=== PATIENT | female | born 1970 | race Caucasian/White ===

== ENCOUNTER 2016-08-13 10:15 | Outpatient (RCR) | payer MEDICARE, MEDICAID ==
[~2016-08-13 10:15] MED LIST: AMBIEN 10MG10 MG; AMBIEN 10MG10 MG PO; CELEXA 20MG20 MG/TAB PO; CELEXA40 MG PO; CEPHALEXIN500 M1 PO; CIPRO 250MG TA250 MG PO; CO Q-1010 M1 PO; DETROL LA 2 MG2 MG PO; DETROL1 MG; ELAVIL100 MG PO; ENABLEX15 MG PO; FENTANYL 100MCG TD; FENTANYL 12MCG; FENTANYL 75MCG TD; FLEXERIL 1010 MG/TAB PO; HAIR SKIN AND NAILS; HAIRSKINNAILS PO; LASIX 20MG TABL20 MG PO; MACROBID 1100 MG/CAP PO; MIRALAX PA17 GM/Dose PO; NORCO 325 MG-7.1 TAB PO; PERCOCET 325 MG1 TA2 PO; PERCOCET 325 MG1 TAB PO; SINGULAIR 110 MG/TAB PO; SYNTHROID0.05 MG/TA PO; THE MEDICINE S200 M2 PO; ULTRAM 50MG TAB50 MG PO; XANAX 1MG1 MG PO; XANAX XR1 M1 PO; XANAX XR2 M1 PO
[2016-08-14] MEDS ORDERED: ZOFRAN ODT4 MG PO (17:27)
[2016-10-04] MEDS ORDERED: DOXYCYCLINE 10100 MG PO (20:40)
== END 2016-08-17 | disposition still patient (30) ==
LOC: WSPT
DX: G11.1 Early-onset cerebellar ataxia (principal)
CPT/HCPCS: G8984-GP; G8985-GP

== ENCOUNTER 2016-08-14 14:27 | Emergency (ER) | payer MEDICARE, MEDICAID ==
[~2016-08-14] VITALS: Ht 152.4 cm; Wt 40.9 kg
[2016-08-14 14:29] VITALS: TEMP 97.8
[2016-08-14 15:46] LABS: BASO % 0.5 % (0.0-2.0); EOS # 0.3 (0.0-0.7); EOS % 3.9 % (0-4.0); GRAN % 58.8 % (42.2-75.2); HEMATOCRIT 42.7 % (37.0-47.0); HEMOGLOBIN 14.4 g/dl (12.5-16.0); LYMPH # 2.7 (1.2-3.4); LYMPH % 32.3 % (20.0-51.0); MEAN CELL VOLUME 96 fl (80.0-100.0); MEAN CORPUSCULAR HEMOGLOBIN 33 pg (27.0-31.0); MEAN CORPUSCULAR HGB CONC 34 g/dl (33.0-37.0); MONO # 0.4 (0.1-0.6); MONO % 4.3 % (1.7-9.3); PLATELET COUNT 232 K/mm3 (130-400); RED BLOOD COUNT 4.43 M/mm3 (4.10-5.30); REDCELL DISTRIBUTION WIDTH-CV 12.7 % (11.5-14.5); WHITE BLOOD COUNT 8.4 K/mm3 (4.8-10.8)
[2016-08-14 16:06] LABS: ADJUSTED CALCIUM 9.8 mg/dL (8.4-10.2); ALBUMIN 4.1 gm/dL (3.5-5.0); BILIRUBIN,TOTAL 0.7 mg/dL (0.0-1.0); CALCIUM 9.9 mg/dL (8.4-10.2); CREATININE, serum 0.51 mg/dL (0.52-1.25); POTASSIUM 3.7 mmol/L (3.4-5.0); TOTAL PROTEIN 7.2 gm/dL (6.4-8.2)
[2016-08-14 17:13] LABS: PH 5 (5-8); URINE APPEARANCE Hazy; URINE BACTERIA Rare /hpf; URINE BILIRUBIN Negative (NEGATIVE); URINE BLOOD Negative (NEGATIVE); URINE COLOR Yellow; URINE GLUCOSE Negative (NEGATIVE); URINE KETONE Negative (NEGATIVE); URINE RBC 0-2 /hpf; URINE UROBILINOGEN Negative (NEGATIVE)
[2016-08-14] MEDS ORDERED: ZOFRAN ODT4 MG PO (17:27)
[2016-08-14 18:04] VITALS: BP 104/77; PULSE 65
[2016-10-04] MEDS ORDERED: DOXYCYCLINE 10100 MG PO (20:40)
== END 2016-08-14 18:06 | disposition home or self-care (01) ==
LOC: COL.ER 14:27
PROVIDERS: Family Medicine
DX: G11.1 Early-onset cerebellar ataxia (principal); R53.1 Weakness
CPT/HCPCS: J1170; J2405; J7030

== ENCOUNTER → 2016-10-04 | Emergency (ER) | payer MEDICARE, MEDICAID ==
[~2016-10-04] VITALS: Ht 152.4 cm; Wt 45.5 kg
[~2016-10-04] MED LIST changes: +DEPAKOTE ER 50500 MG PO; +DOXYCYCLINE 10100 MG PO; +DULCOLAX STOOL100 MG PO; +FLOMAX 0.40.4 MG/CAP PO; +OMNICEF 300MG300 MG PO; +ZITHROMAX 250M250 MG PO; +ZOFRAN 4MG T4 MG/TAB PO; +ZOFRAN ODT4 MG PO
[2016-10-04 17:36] VITALS: BP 107/70; TEMP 98.4
[2016-10-04 21:05] VITALS: PULSE 96
== END ==
LOC: COL.ER 17:31
DX: N76.4 Abscess of vulva (principal); G11.1 Early-onset cerebellar ataxia; Z99.3 Dependence on wheelchair

== ENCOUNTER 2016-10-07 16:55 | Observation (INO) | payer MEDICARE, MEDICAID ==
[~2016-10-07] VITALS: Ht 152.4 cm; Wt 44.9 kg
[~2016-10-07 16:55] MED LIST changes: -DEPAKOTE ER 50500 MG PO; -DULCOLAX STOOL100 MG PO; -FLOMAX 0.40.4 MG/CAP PO; -OMNICEF 300MG300 MG PO; -ZITHROMAX 250M250 MG PO; -ZOFRAN 4MG T4 MG/TAB PO
[2016-10-07 20:54] LABS: BASO % 0.4 % (0.0-2.0); EOS # 0.3 (0.0-0.7); EOS % 3.9 % (0-4.0); GRAN # 4.2 (1.4-6.5); GRAN % 53.8 % (42.2-75.2); HEMATOCRIT 37.6 % (37.0-47.0); HEMOGLOBIN 12.5 g/dl (12.5-16.0); LYMPH # 2.8 (1.2-3.4); LYMPH % 36.5 % (20.0-51.0); MEAN CELL VOLUME 98 fl (80.0-100.0); MEAN CORPUSCULAR HEMOGLOBIN 33 pg (27.0-31.0); MEAN CORPUSCULAR HGB CONC 33 g/dl (33.0-37.0); MEAN PLATELET VOLUME 9.1 fl (7.4-10.4); MONO # 0.4 (0.1-0.6); PLATELET COUNT 269 K/mm3 (130-400); RED BLOOD COUNT 3.84 M/mm3 (4.10-5.30); REDCELL DISTRIBUTION WIDTH-CV 12.1 % (11.5-14.5); WHITE BLOOD COUNT 7.7 K/mm3 (4.8-10.8)
[2016-10-07 21:02] LABS: ALBUMIN 3.7 gm/dL (3.5-5.0); BILIRUBIN,TOTAL 0.7 mg/dL (0.0-1.0); CALCIUM 8.8 mg/dL (8.4-10.2); CREATININE, serum 0.4 mg/dL (0.52-1.25); MAGNESIUM 1.7 mg/dL (1.6-2.3); PHOSPHOROUS 3.1 mg/dL (2.5-4.5); POTASSIUM 3.4 mmol/L (3.4-5.0); TOTAL PROTEIN 6.3 gm/dL (6.4-8.2)
[2016-10-07 21:19] LABS: PROLACTIN 9.8 ng/mL (3.0-18.6)
[2016-10-07 23:30] LABS: PH 5 (5-8); SQUAMOUS EPITHELIAL 20-50 /hpf; URINE APPEARANCE Cloudy; URINE BACTERIA Rare /hpf; URINE BILIRUBIN Negative (NEGATIVE); URINE BLOOD Negative (NEGATIVE); URINE COLOR Amber; URINE GLUCOSE Negative (NEGATIVE); URINE KETONE 1+ (NEGATIVE); URINE UROBILINOGEN Negative (NEGATIVE)
[2016-10-07 23:40] VITALS: BP 113/75; PULSE 82; TEMP 98.3
[2016-10-08 03:50] VITALS: BP 99/65; PULSE 90; TEMP 98.2
[2016-10-08 08:34] VITALS: BP 97/69; PULSE 98; TEMP 98.1
[2016-10-08] MEDS ORDERED: NORCO 325 MG-7.1 TAB PO (10:24)
[2016-10-08 11:48] VITALS: BP 116/79; PULSE 97; TEMP 98.4
[2016-10-08 13:01] LABS: HIV 1/2 Antibodies Non-Reactive; HIV-1p24 Antigen Non-Reactive
[2016-10-08 14:55] VITALS: BP 127/72; PULSE 113; TEMP 97.9
[2016-10-08 19:59] VITALS: BP 122/75; PULSE 98; TEMP 97.6
[2016-10-09 00:11] VITALS: BP 98/54; PULSE 97; TEMP 98.4
[2016-10-09 04:30] VITALS: BP 97/63; PULSE 93; TEMP 98
[2016-10-09 08:52] VITALS: BP 106/58; PULSE 96; TEMP 97.5
[2016-10-10 18:00] LABS: .ANTICARDIOLIPIN IGG <9.4 GPL (()); .ANTICARDIOLIPIN IGM <9.4 MPL (())
== END 2016-10-09 16:31 | disposition home or self-care (01) ==
LOC: COL.ER 16:55 → MEDICAL 22:47
PROVIDERS: Emergency Medicine; Psychiatry & Neurology Neurology
DX: R51 Headache (principal); R41.82 Altered mental status, unspecified; N76.4 Abscess of vulva; G11.1 Early-onset cerebellar ataxia; I42.9 Cardiomyopathy, unspecified; F17.210 Nicotine dependence, cigarettes, uncomplicated
CPT/HCPCS: 99239; G0378; J1170; J1200; J1885; J2060; J2550; J7030

== ENCOUNTER 2016-11-05 10:00 | Outpatient (RCR) | payer MEDICARE, MEDICAID | END 2016-11-10 11:13 | disposition home or self-care (01) | LOC: WSPT 10:00 → WSC 10:00 | DX: G11.1 Early-onset cerebellar ataxia (principal) ==

== ENCOUNTER 2016-11-29 15:51 | Emergency (ER) | payer MEDICARE, MEDICAID ==
[2016-11-29 15:56] VITALS: TEMP 98.5
[2016-11-29 17:01] LABS: BASO % 0.3 % (0.0-2.0); EOS # 0.1 (0.0-0.7); EOS % 0.8 % (0-4.0); GRAN # 11.1 (1.4-6.5); GRAN % 75.7 % (42.2-75.2); HEMOGLOBIN 12.5 g/dl (12.5-16.0); LYMPH # 2.3 (1.2-3.4); LYMPH % 15.9 % (20.0-51.0); MEAN CELL VOLUME 97 fl (80.0-100.0); MEAN CORPUSCULAR HEMOGLOBIN 33 pg (27.0-31.0); MEAN CORPUSCULAR HGB CONC 34 g/dl (33.0-37.0); MEAN PLATELET VOLUME 9.3 fl (7.4-10.4); MONO % 6.9 % (1.7-9.3); PLATELET COUNT 178 K/mm3 (130-400); REDCELL DISTRIBUTION WIDTH-CV 12.1 % (11.5-14.5); WHITE BLOOD COUNT 14.7 K/mm3 (4.8-10.8)
[2016-11-29 17:02] LABS: HEMATOCRIT 36.8 % (37.0-47.0)
[2016-11-29 17:12] LABS: ADJUSTED CALCIUM 9.6 mg/dL (8.4-10.2); ALBUMIN 3.6 gm/dL (3.5-5.0); BILIRUBIN,TOTAL 0.7 mg/dL (0.0-1.0); CALCIUM 9.3 mg/dL (8.4-10.2); CREATININE, serum 0.46 mg/dL (0.52-1.25); POTASSIUM 3.3 mmol/L (3.4-5.0); TOTAL PROTEIN 6.3 gm/dL (6.4-8.2)
[2016-11-29 18:21] LABS: C-REACTIVE PROTEIN 6.2 mg/dL (0.0-0.9)
[2016-11-29 19:19] LABS: PH 5 (5-8); SQUAMOUS EPITHELIAL 0-2 /hpf; URINE APPEARANCE Clear; URINE BACTERIA None Seen /hpf; URINE BILIRUBIN Negative (NEGATIVE); URINE BLOOD 2+ (NEGATIVE); URINE COLOR Yellow; URINE GLUCOSE Negative (NEGATIVE); URINE KETONE Trace (NEGATIVE); URINE RBC 20-50 /hpf; URINE WBC 0-2 /hpf
[2016-11-29 21:55] LABS: CEREBROSPINAL TUBE #4; CSF APPEARANCE CLEAR; CSF COLOR COLORLESS
[2016-11-29 22:44] VITALS: BP 92/64; PULSE 84
== END 2016-11-29 22:55 | disposition home or self-care (01) ==
LOC: COL.ER 15:51
PROVIDERS: Emergency Medicine; Family Medicine
DX: R51 Headache (principal); R41.0 Disorientation, unspecified; G11.1 Early-onset cerebellar ataxia; D72.829 Elevated white blood cell count, unspecified
CPT/HCPCS: J1170; J7030

== ENCOUNTER 2016-11-30 18:33 | Observation (INO) | payer MEDICARE, MEDICAID ==
[~2016-11-30] VITALS: Ht 160 cm; Wt 48.8 kg
[2016-11-30 19:26] LABS: BASO % 0.4 % (0.0-2.0); EOS # 0.5 (0.0-0.7); EOS % 6.9 % (0-4.0); GRAN # 4.4 (1.4-6.5); GRAN % 57.1 % (42.2-75.2); HEMATOCRIT 35.3 % (37.0-47.0); HEMOGLOBIN 11.7 g/dl (12.5-16.0); LYMPH # 2.4 (1.2-3.4); LYMPH % 30.8 % (20.0-51.0); MEAN CELL VOLUME 99 fl (80.0-100.0); MEAN CORPUSCULAR HEMOGLOBIN 33 pg (27.0-31.0); MEAN CORPUSCULAR HGB CONC 33 g/dl (33.0-37.0); MEAN PLATELET VOLUME 9.5 fl (7.4-10.4); MONO # 0.3 (0.1-0.6); MONO % 4.5 % (1.7-9.3); PLATELET COUNT 151 K/mm3 (130-400); RED BLOOD COUNT 3.55 M/mm3 (4.10-5.30); REDCELL DISTRIBUTION WIDTH-CV 12.2 % (11.5-14.5); WHITE BLOOD COUNT 7.6 K/mm3 (4.8-10.8)
[2016-11-30 19:31] LABS: INR 1.1 (0.8-3.0); PROTHROMBIN TIME 11.8 SECONDS (9.7-12.8)
[2016-11-30 19:34] LABS: PARTIAL THROMBOPLASTIN TIME 28.5 SECONDS (26.0-37.0)
[2016-11-30 19:42] LABS: ADJUSTED CALCIUM 9.3 mg/dL (8.4-10.2); ALBUMIN 3.6 gm/dL (3.5-5.0); BILIRUBIN,TOTAL 0.7 mg/dL (0.0-1.0); C-REACTIVE PROTEIN 5.3 mg/dL (0.0-0.9); CREATININE, serum 0.49 mg/dL (0.52-1.25); POTASSIUM 3.4 mmol/L (3.4-5.0); TOTAL PROTEIN 6.4 gm/dL (6.4-8.2)
[2016-12-01 02:49] VITALS: BP 98/64; PULSE 96; TEMP 98.6
[2016-12-01 02:52] VITALS: BP 99/60; PULSE 94; TEMP 98.3
[2016-12-01 08:03] VITALS: BP 112/75; PULSE 88
[2016-12-01 11:01] VITALS: BP 111/76; PULSE 97; TEMP 98
[2016-12-01] MEDS ORDERED: XANAX XR2 M1 PO (11:24)
[2016-12-01] MEDS ORDERED: DEPAKOTE ER 50500 MG PO (11:26)
[2016-12-01 15:58] VITALS: BP 97/70; PULSE 83; TEMP 98.5
== END 2016-12-01 17:40 | disposition home or self-care (01) ==
LOC: COL.ER 18:33 → MEDICAL 20:32
PROVIDERS: Emergency Medicine
DX: R41.82 Altered mental status, unspecified (principal); R47.81 Slurred speech; G43.909 Migraine, unspecified, not intractable, without status migrainosus; J02.9 Acute pharyngitis, unspecified; I95.9 Hypotension, unspecified; Z79.02 Long term (current) use of antithrombotics/antiplatelets; G11.1 Early-onset cerebellar ataxia; G82.50 Quadriplegia, unspecified; Z99.3 Dependence on wheelchair; I42.9 Cardiomyopathy, unspecified; Z86.73 Personal history of transient ischemic attack (TIA), and cerebral infarction without residual deficits; F17.210 Nicotine dependence, cigarettes, uncomplicated
CPT/HCPCS: 99222-AI; 99239; G0378; J1885; J7030

== ENCOUNTER 2016-12-04 09:07 | Inpatient (IN) | payer MEDICARE, MEDICAID ==
[~2016-12-04] VITALS: Ht 165.1 cm; Wt 52.6 kg
[~2016-12-04 09:07] MED LIST changes: +DEPAKOTE ER 50500 MG PO
[2016-12-04 10:31] LABS: BASO % 0.3 % (0.0-2.0); EOS # 0.3 (0.0-0.7); EOS % 2.9 % (0-4.0); GRAN % 73.9 % (42.2-75.2); LYMPH # 1.6 (1.2-3.4); LYMPH % 14.5 % (20.0-51.0); MEAN CELL VOLUME 99 fl (80.0-100.0); MEAN CORPUSCULAR HGB CONC 33 g/dl (33.0-37.0); MEAN PLATELET VOLUME 9.8 fl (7.4-10.4); MONO # 0.8 (0.1-0.6); MONO % 7.8 % (1.7-9.3); PLATELET COUNT 181 K/mm3 (130-400); RED BLOOD COUNT 3.48 M/mm3 (4.10-5.30); REDCELL DISTRIBUTION WIDTH-CV 12.4 % (11.5-14.5); WHITE BLOOD COUNT 10.8 K/mm3 (4.8-10.8)
[2016-12-04 10:38] LABS: ALBUMIN 3.5 gm/dL (3.5-5.0); BILIRUBIN,TOTAL 0.7 mg/dL (0.0-1.0); CALCIUM 8.6 mg/dL (8.4-10.2); CREATININE, serum 0.41 mg/dL (0.52-1.25); POTASSIUM 3.1 mmol/L (3.4-5.0); TOTAL PROTEIN 6.2 gm/dL (6.4-8.2)
[2016-12-04 10:51] LABS: HEMATOCRIT 34.3 % (37.0-47.0); HEMOGLOBIN 11.4 g/dl (12.5-16.0); MEAN CORPUSCULAR HEMOGLOBIN 33 pg (27.0-31.0)
[2016-12-04 11:01] LABS: TROPONIN-I 0.055 ng/mL (0.000-0.034)
[2016-12-04 12:19] VITALS: BP 116/72; PULSE 88; TEMP 98.1
[2016-12-04 12:21] VITALS: BP 116/72; PULSE 88; TEMP 98.1
[2016-12-04 18:11] VITALS: BP 89/63; PULSE 87; TEMP 97.3
[2016-12-04 20:23] LABS: MAGNESIUM 1.8 mg/dL (1.6-2.3)
[2016-12-04 21:32] VITALS: BP 95/65; PULSE 88; TEMP 97.8
[2016-12-05 01:39] VITALS: BP 89/59; PULSE 82; TEMP 97.4
[2016-12-05 05:31] VITALS: BP 94/64; PULSE 82; TEMP 97.5
[2016-12-05 07:05] LABS: BASO % 0.4 % (0.0-2.0); EOS # 0.4 (0.0-0.7); EOS % 5.7 % (0-4.0); GRAN # 4.1 (1.4-6.5); GRAN % 55.7 % (42.2-75.2); LYMPH # 2.3 (1.2-3.4); LYMPH % 30.8 % (20.0-51.0); MEAN CELL VOLUME 99 fl (80.0-100.0); MEAN CORPUSCULAR HGB CONC 33 g/dl (33.0-37.0); MEAN PLATELET VOLUME 10.3 fl (7.4-10.4); MONO # 0.5 (0.1-0.6); MONO % 6.3 % (1.7-9.3); PLATELET COUNT 188 K/mm3 (130-400); REDCELL DISTRIBUTION WIDTH-CV 12.4 % (11.5-14.5); WHITE BLOOD COUNT 7.4 K/mm3 (4.8-10.8)
[2016-12-05 07:07] LABS: HEMATOCRIT 31.7 % (37.0-47.0); HEMOGLOBIN 10.3 g/dl (12.5-16.0); MEAN CORPUSCULAR HEMOGLOBIN 32 pg (27.0-31.0)
[2016-12-05 07:26] LABS: CALCIUM 8.8 mg/dL (8.4-10.2); CREATININE, serum 0.42 mg/dL (0.52-1.25)
[2016-12-05 10:13] VITALS: BP 109/56; PULSE 100; TEMP 98
[2016-12-05 13:57] VITALS: BP 94/60; PULSE 87; TEMP 98
[2016-12-05 17:27] VITALS: BP 96/71; PULSE 96; TEMP 98.4
[2016-12-05 21:23] VITALS: BP 106/77; PULSE 89; TEMP 98.5
[2016-12-06 05:24] VITALS: BP 96/65; PULSE 83; TEMP 98.1
[2016-12-06] MEDS ORDERED: OMNICEF 300MG300 MG PO (07:54)
[2016-12-06] MEDS ORDERED: ZITHROMAX 250M250 MG PO (07:55)
[2016-12-06] MEDS ORDERED: XANAX XR2 M1 PO (07:56)
[2016-12-06 10:02] VITALS: BP 107/79; PULSE 95; TEMP 98.2
[2016-12-06 12:03] LABS: PH 7 (5-8); URINE APPEARANCE Clear; URINE BACTERIA None Seen /hpf; URINE BILIRUBIN Negative (NEGATIVE); URINE BLOOD Negative (NEGATIVE); URINE COLOR Yellow; URINE GLUCOSE Negative (NEGATIVE); URINE KETONE Negative (NEGATIVE); URINE WBC 0-2 /hpf
== END 2016-12-06 14:20 | disposition home or self-care (01) | DRG 871 ==
LOC: COL.ER 09:07 → SURG 11:06
PROVIDERS: Emergency Medicine; Internal Medicine; Physician Assistant
DX: A41.9 Sepsis, unspecified organism (principal); J18.9 Pneumonia, unspecified organism; G11.1 Early-onset cerebellar ataxia; Z68.1 Body mass index [BMI] 19.9 or less, adult; Z99.3 Dependence on wheelchair; Z86.73 Personal history of transient ischemic attack (TIA), and cerebral infarction without residual deficits; F17.210 Nicotine dependence, cigarettes, uncomplicated; J02.9 Acute pharyngitis, unspecified; E87.6 Hypokalemia; R51 Headache; D64.9 Anemia, unspecified; K59.00 Constipation, unspecified; R63.6 Underweight
CPT/HCPCS: 99222-AI; 99223-AI; 99232-AI; 99239; G0378; J0456; J0696; J1650; J1885; J2270; J7030; J7050

== ENCOUNTER 2017-03-16 20:31 | Emergency (ER) | payer MEDICARE, MEDICAID ==
[~2017-03-16] VITALS: Ht 152.4 cm; Wt 46.8 kg
[~2017-03-16 20:31] MED LIST changes: +OMNICEF 300MG300 MG PO; +ZITHROMAX 250M250 MG PO
[2017-03-16 20:33] VITALS: TEMP 98.8
[2017-03-16] MEDS ORDERED: XANAX XR2 M1 PO (21:01)
[2017-03-16] MEDS ORDERED: ELAVIL100 MG PO (21:01)
[2017-03-16] MEDS ORDERED: CELEXA40 MG PO (21:02)
[2017-03-16] MEDS ORDERED: SINGULAIR 110 MG/TAB PO (21:02)
[2017-03-16] MEDS ORDERED: ENABLEX15 MG PO (21:02)
[2017-03-16] MEDS ORDERED: LASIX 20MG TABL20 MG PO (21:03)
[2017-03-16] MEDS ORDERED: FLEXERIL 1010 MG/TAB PO (21:03)
[2017-03-16 21:41] LABS: BASO % 0.4 % (0.0-2.0); EOS # 0.4 (0.0-0.7); EOS % 5.1 % (0-4.0); GRAN # 2.8 (1.4-6.5); GRAN % 40.4 % (42.2-75.2); HEMATOCRIT 38.2 % (37.0-47.0); HEMOGLOBIN 12.9 g/dl (12.5-16.0); LYMPH # 3.3 (1.2-3.4); LYMPH % 48.5 % (20.0-51.0); MEAN CELL VOLUME 97 fl (80.0-100.0); MEAN CORPUSCULAR HEMOGLOBIN 33 pg (27.0-31.0); MEAN CORPUSCULAR HGB CONC 34 g/dl (33.0-37.0); MEAN PLATELET VOLUME 8.5 fl (7.4-10.4); MONO # 0.4 (0.1-0.6); MONO % 5.5 % (1.7-9.3); PLATELET COUNT 249 K/mm3 (130-400); RED BLOOD COUNT 3.93 M/mm3 (4.10-5.30); REDCELL DISTRIBUTION WIDTH-CV 12.1 % (11.5-14.5); WHITE BLOOD COUNT 6.9 K/mm3 (4.8-10.8)
[2017-03-16 21:45] LABS: PH 5 (5-8); SQUAMOUS EPITHELIAL 0-2 /hpf; URINE APPEARANCE Cloudy; URINE BACTERIA None Seen /hpf; URINE BILIRUBIN Negative (NEGATIVE); URINE BLOOD 3+ (NEGATIVE); URINE COLOR Amber; URINE GLUCOSE Negative (NEGATIVE); URINE KETONE Negative (NEGATIVE); URINE RBC >50 /hpf
[2017-03-16 21:47] LABS: URINE WBC 0-2 /hpf
[2017-03-16 21:58] LABS: ADJUSTED CALCIUM 9.3 mg/dL (8.4-10.2); ALBUMIN 4.2 gm/dL (3.5-5.0); BILIRUBIN,TOTAL 0.5 mg/dL (0.0-1.0); CALCIUM 9.5 mg/dL (8.4-10.2); CREATININE, serum 0.49 mg/dL (0.52-1.25); POTASSIUM 3.6 mmol/L (3.4-5.0)
[2017-03-16] MEDS ORDERED: CEPHALEXIN500 M1 PO (23:44)
[2017-03-16] MEDS ORDERED: PERCOCET 325 MG1 TA2 PO (23:44)
[2017-03-16] MEDS ORDERED: FLOMAX 0.40.4 MG/CAP PO (23:44)
[2017-03-16] MEDS ORDERED: ZOFRAN 4MG T4 MG/TAB PO (23:44)
[2017-03-16] MEDS ORDERED: DULCOLAX STOOL100 MG PO (23:44)
[2017-03-17 00:53] VITALS: BP 110/80; PULSE 84
== END 2017-03-17 00:54 | disposition home or self-care (01) ==
LOC: COL.ER 20:31
PROVIDERS: Emergency Medicine
DX: N20.0 Calculus of kidney (principal); Z87.440 Personal history of urinary (tract) infections
CPT/HCPCS: J1885; J2405; J7030; Q9967

== ENCOUNTER 2017-04-01 14:26 | Observation (INO) | payer MEDICARE, MEDICAID ==
[~2017-04-01 14:26] MED LIST changes: +DULCOLAX STOOL100 MG PO; +FLOMAX 0.40.4 MG/CAP PO; +ZOFRAN 4MG T4 MG/TAB PO
[2017-04-01] MEDS ORDERED: COLACE 100100 MG/CAP PO (15:25)
[2017-04-01] MEDS ORDERED: FENTANYL 100MCG TD (15:32)
[2017-04-01 15:38] VITALS: BP 95/77; PULSE 89; TEMP 98.1
[2017-04-01 16:23] LABS: HEMATOCRIT 42.2 % (37.0-47.0); HEMOGLOBIN 14.4 g/dl (12.5-16.0)
[2017-04-01 16:37] LABS: CALCIUM 9.7 mg/dL (8.4-10.2); CREATININE, serum 0.5 mg/dL (0.52-1.25); MAGNESIUM 1.8 mg/dL (1.6-2.3); POTASSIUM 3.1 mmol/L (3.4-5.0)
[2017-04-01 21:31] VITALS: BP 109/70; PULSE 91; TEMP 97.8
[2017-04-01 23:49] VITALS: BP 114/69; PULSE 82; TEMP 97.8
[2017-04-02 04:54] VITALS: BP 96/62; PULSE 82; TEMP 97.8
[2017-04-02 07:40] LABS: CALCIUM 9.2 mg/dL (8.4-10.2); CREATININE, serum 0.47 mg/dL (0.52-1.25); MAGNESIUM 1.9 mg/dL (1.6-2.3); POTASSIUM 4.4 mmol/L (3.4-5.0)
[2017-04-02 07:59] VITALS: BP 115/72; PULSE 78; TEMP 97.2
[2017-04-02 14:04] VITALS: BP 106/79; PULSE 85
[2017-04-03] MEDS ORDERED: CEFTIN 250250 MG/TAB PO (12:26)
[2017-04-03] MEDS ORDERED: LINZESS290CAP (12:26)
[2017-04-03] MEDS ORDERED: PERCOCET 325 MG1 TA2 PO (12:27)
[2017-04-03] MEDS ORDERED: SILVADEN TOP (12:27)
[2017-04-04] MEDS ORDERED: BACTRIM DS 8001 TAB PO (13:11)
== END 2017-04-02 14:50 | disposition home or self-care (01) ==
LOC: SDCO 14:26 → MEDICAL 14:26 → SDCO 16:01 → MEDICAL 04-02 14:50
PROVIDERS: Internal Medicine; Physician Assistant
DX: K64.1 Second degree hemorrhoids (principal); K59.00 Constipation, unspecified; E87.6 Hypokalemia; G11.1 Early-onset cerebellar ataxia; G43.909 Migraine, unspecified, not intractable, without status migrainosus; I42.9 Cardiomyopathy, unspecified; K62.5 Hemorrhage of anus and rectum; F32.9 Major depressive disorder, single episode, unspecified; F17.210 Nicotine dependence, cigarettes, uncomplicated; J45.909 Unspecified asthma, uncomplicated; E03.9 Hypothyroidism, unspecified; F41.9 Anxiety disorder, unspecified; G89.29 Other chronic pain; Z86.73 Personal history of transient ischemic attack (TIA), and cerebral infarction without residual deficits; Z90.710 Acquired absence of both cervix and uterus; Z90.49 Acquired absence of other specified parts of digestive tract
CPT/HCPCS: G0378; G0379; J2704; J3480; J7120

== ENCOUNTER 2017-06-09 09:43 | Emergency (ER) | payer MEDICARE, MEDICAID ==
[~2017-06-09] VITALS: Ht 152.4 cm; Wt 52.3 kg
[~2017-06-09 09:43] MED LIST changes: -ROXICODONE 55 MG/TAB PO
[2017-06-09 09:46] VITALS: TEMP 98.4
[2017-06-09 10:35] LABS: BASO % 0.5 % (0.0-2.0); EOS # 0.4 (0.0-0.7); EOS % 5.8 % (0-4.0); GRAN # 3.3 (1.4-6.5); GRAN % 53.7 % (42.2-75.2); HEMATOCRIT 42.5 % (37.0-47.0); HEMOGLOBIN 14.1 g/dl (12.5-16.0); LYMPH # 2.1 (1.2-3.4); LYMPH % 33.8 % (20.0-51.0); MEAN CELL VOLUME 99 fl (80.0-100.0); MEAN CORPUSCULAR HEMOGLOBIN 33 pg (27.0-31.0); MEAN CORPUSCULAR HGB CONC 33 g/dl (33.0-37.0); MEAN PLATELET VOLUME 8.7 fl (7.4-10.4); MONO # 0.4 (0.1-0.6); PLATELET COUNT 262 K/mm3 (130-400); RED BLOOD COUNT 4.29 M/mm3 (4.10-5.30); WHITE BLOOD COUNT 6.2 K/mm3 (4.8-10.8)
[2017-06-09 10:45] LABS: ADJUSTED CALCIUM 9.7 mg/dL (8.4-10.2); ALBUMIN 4.4 gm/dL (3.5-5.0); BILIRUBIN,TOTAL 0.5 mg/dL (0.0-1.0); CREATININE, serum 0.51 mg/dL (0.52-1.25); POTASSIUM 3.7 mmol/L (3.4-5.0); TOTAL PROTEIN 7.4 gm/dL (6.4-8.2)
[2017-06-09 10:45] LABS: COLLECTION METHOD CATHETER
[2017-06-09 10:57] LABS: AMORPHOUS CRYSTAL Present /uL; BUDDING YEAST Present /hpf; PH 5 (5-8); SQUAMOUS EPITHELIAL 0-2 /hpf; URINE APPEARANCE Cloudy; URINE BACTERIA None Seen /hpf; URINE BILIRUBIN Negative (NEGATIVE); URINE BLOOD 3+ (NEGATIVE); URINE COLOR Amber; URINE GLUCOSE Negative (NEGATIVE); URINE KETONE Negative (NEGATIVE); URINE LEUKOCYTE ESTERASE Negative (NEGATIVE); URINE PROTEIN(semi-quant) 2+ (NEGATIVE); URINE RBC >50 /hpf; URINE WBC 0-2 /hpf
[2017-06-09 11:45] VITALS: BP 124/78; PULSE 67
[2017-06-09] MEDS ORDERED: ROXICODONE 55 MG/TAB PO (15:41)
== END 2017-06-09 11:45 | disposition home or self-care (01) ==
LOC: COL.ER 09:43
PROVIDERS: Nurse Practitioner
DX: R31.9 Hematuria, unspecified (principal); F32.9 Major depressive disorder, single episode, unspecified; F41.9 Anxiety disorder, unspecified; G11.9 Hereditary ataxia, unspecified; F17.210 Nicotine dependence, cigarettes, uncomplicated; Z90.710 Acquired absence of both cervix and uterus; Z90.49 Acquired absence of other specified parts of digestive tract; Z90.89 Acquired absence of other organs; Z98.890 Other specified postprocedural states; Z86.73 Personal history of transient ischemic attack (TIA), and cerebral infarction without residual deficits

== ENCOUNTER 2017-06-09 14:47 | Day surgery (SDC) | payer MEDICARE, MEDICAID ==
[2017-06-09] VITALS (10 sets, daily range): BP systolic 112–126; BP diastolic 65–92; PULSE 65–96; TEMP 98.1–98.3
[~2017-06-09] VITALS: Ht 152.4 cm; Wt 49.9 kg
[2017-06-09] MEDS ORDERED: ROXICODONE 55 MG/TAB PO (15:41)
[2017-06-10 01:06] VITALS: BP 104/65; PULSE 86; TEMP 98
[2017-06-10 05:50] VITALS: BP 92/59; PULSE 85; TEMP 98.2
[2017-06-10 09:01] VITALS: BP 118/75; PULSE 103; TEMP 97.6
== END 2017-06-10 10:26 | disposition home or self-care (01) ==
LOC: SDCO 14:47 → SURG 14:47 → SDCO 06-10 10:26
DX: N20.1 Calculus of ureter (principal); G11.1 Early-onset cerebellar ataxia; Z87.442 Personal history of urinary calculi; Z90.710 Acquired absence of both cervix and uterus; F17.210 Nicotine dependence, cigarettes, uncomplicated; F32.9 Major depressive disorder, single episode, unspecified; F41.9 Anxiety disorder, unspecified; I42.9 Cardiomyopathy, unspecified; E03.9 Hypothyroidism, unspecified; I69.898 Other sequelae of other cerebrovascular disease; I69.828 Other speech and language deficits following other cerebrovascular disease; Z99.3 Dependence on wheelchair; G89.29 Other chronic pain
CPT/HCPCS: OP; C1769; J2270; Q9967

== ENCOUNTER → 2017-06-09 | Outpatient (CLI) | payer MEDICARE, MEDICAID ==
[~2017-06-09] MED LIST changes: +BACTRIM DS 8001 TAB PO; +CEFTIN 250250 MG/TAB PO; +COLACE 100100 MG/CAP PO; +LINZESS290CAP; +ROXICODONE 55 MG/TAB PO; +SILVADEN TOP
== END ==
LOC: COL.RAD 13:10
DX: N13.2 Hydronephrosis with renal and ureteral calculous obstruction (principal); Z90.49 Acquired absence of other specified parts of digestive tract; Z90.710 Acquired absence of both cervix and uterus; K59.00 Constipation, unspecified
CPT/HCPCS: J0690; J1100; J2405; J2704; J3010

== ENCOUNTER 2017-07-01 15:07 | Inpatient (IN) | payer MEDICARE, MEDICAID ==
[~2017-07-01] VITALS: Ht 152.4 cm; Wt 50.4 kg
[~2017-07-01 15:07] MED LIST changes: +ROXICODONE 55 MG/TAB PO
[2017-07-01 16:19] LABS: ALANINE AMINOTRANSFERASE 49 U/L (9-52); ALBUMIN 4.4 gm/dL (3.5-5.0); ALKALINE PHOSPHATASE 114 U/L (50-136); ANION GAP 10 mmol/L (7-16); AST,SGOT 37 U/L (15-37); BILIRUBIN,TOTAL 0.5 mg/dL (0.0-1.0); BLOOD UREA NITROGEN 11 mg/dL (7-17); C-REACTIVE PROTEIN < 0.5 mg/dL (0.0-0.9); CALCIUM 10.1 mg/dL (8.4-10.2); CARBON DIOXIDE 24 mmol/L (22-30); CHLORIDE 101 mmol/L (98-107); CREATININE, serum 0.41 mg/dL (0.52-1.25); GLUCOSE 132 mg/dL (74-106); POTASSIUM 4.1 mmol/L (3.4-5.0); SODIUM 135 mmol/L (137-145); TOTAL PROTEIN 7.2 gm/dL (6.4-8.2)
[2017-07-01 16:30] LABS: COLLECTION METHOD CATHETER
[2017-07-01 16:32] LABS: BASO % 0.3 % (0.0-2.0); EOS # 0.2 (0.0-0.7); EOS % 1.8 % (0-4.0); GRAN # 6.5 (1.4-6.5); HEMATOCRIT 38.3 % (37.0-47.0); HEMOGLOBIN 12.7 g/dl (12.5-16.0); LYMPH # 1.9 (1.2-3.4); LYMPH % 20.3 % (20.0-51.0); MEAN CELL VOLUME 99 fl (80.0-100.0); MEAN CORPUSCULAR HEMOGLOBIN 33 pg (27.0-31.0); MEAN CORPUSCULAR HGB CONC 33 g/dl (33.0-37.0); MEAN PLATELET VOLUME 8.7 fl (7.4-10.4); MONO # 0.7 (0.1-0.6); MONO % 7.3 % (1.7-9.3); PLATELET COUNT 283 K/mm3 (130-400); RED BLOOD COUNT 3.89 M/mm3 (4.10-5.30); REDCELL DISTRIBUTION WIDTH-CV 12.3 % (11.5-14.5)
[2017-07-01 16:38] LABS: AMORPHOUS CRYSTAL Present /uL; MUCOUS Present /lpf; PH 5 (5-8); URINE APPEARANCE Cloudy; URINE BACTERIA None Seen /hpf; URINE BILIRUBIN Negative (NEGATIVE); URINE BLOOD 3+ (NEGATIVE); URINE COLOR Amber; URINE GLUCOSE Negative (NEGATIVE); URINE KETONE Negative (NEGATIVE); URINE LEUKOCYTE ESTERASE Negative (NEGATIVE); URINE NITRATE Negative (NEGATIVE); URINE PROTEIN(semi-quant) 2+ (NEGATIVE); URINE RBC >50 /hpf
[2017-07-01] MEDS ORDERED: MIRALAX PA17 GM/Dose PO (21:26)
[2017-07-01 22:38] VITALS: BP 125/89; PULSE 104; TEMP 98.6
[2017-07-02] VITALS (13 sets, daily range): BP systolic 97–148; BP diastolic 40–85; PULSE 89–106; TEMP 97.3–98.5
[2017-07-02 07:14] LABS: CALCIUM 9.2 mg/dL (8.4-10.2); CREATININE, serum 0.42 mg/dL (0.52-1.25); POTASSIUM 3.5 mmol/L (3.4-5.0)
[2017-07-02 07:20] LABS: BASO % 0.6 % (0.0-2.0); EOS # 0.3 (0.0-0.7); EOS % 4.9 % (0-4.0); GRAN # 2.6 (1.4-6.5); GRAN % 41.4 % (42.2-75.2); HEMOGLOBIN 12.1 g/dl (12.5-16.0); LYMPH # 2.8 (1.2-3.4); LYMPH % 45.5 % (20.0-51.0); MEAN CELL VOLUME 100 fl (80.0-100.0); MEAN CORPUSCULAR HEMOGLOBIN 33 pg (27.0-31.0); MEAN CORPUSCULAR HGB CONC 33 g/dl (33.0-37.0); MEAN PLATELET VOLUME 9.3 fl (7.4-10.4); MONO # 0.5 (0.1-0.6); MONO % 7.4 % (1.7-9.3); PLATELET COUNT 276 K/mm3 (130-400); RED BLOOD COUNT 3.71 M/mm3 (4.10-5.30); REDCELL DISTRIBUTION WIDTH-CV 12.4 % (11.5-14.5)
[2017-07-02 07:30] LABS: HEMATOCRIT 36.9 % (37.0-47.0)
[2017-07-03 02:09] VITALS: BP 125/80; PULSE 78; TEMP 98.4
[2017-07-03 06:02] VITALS: BP 127/81; PULSE 79; TEMP 97.5
[2017-07-03 06:50] LABS: BASO % 0.1 % (0.0-2.0); EOS % 0.2 % (0-4.0); GRAN # 6.3 (1.4-6.5); GRAN % 71.8 % (42.2-75.2); LYMPH # 1.9 (1.2-3.4); LYMPH % 21.2 % (20.0-51.0); MEAN CELL VOLUME 99 fl (80.0-100.0); MEAN CORPUSCULAR HGB CONC 33 g/dl (33.0-37.0); MEAN PLATELET VOLUME 9.2 fl (7.4-10.4); MONO # 0.6 (0.1-0.6); MONO % 6.2 % (1.7-9.3); PLATELET COUNT 236 K/mm3 (130-400); REDCELL DISTRIBUTION WIDTH-CV 12.4 % (11.5-14.5)
[2017-07-03 06:58] LABS: HEMATOCRIT 34.6 % (37.0-47.0); HEMOGLOBIN 11.4 g/dl (12.5-16.0); MEAN CORPUSCULAR HEMOGLOBIN 33 pg (27.0-31.0)
[2017-07-03 07:17] LABS: CREATININE, serum 0.42 mg/dL (0.52-1.25); POTASSIUM 3.8 mmol/L (3.4-5.0)
[2017-07-03 09:48] VITALS: BP 112/80; PULSE 80; TEMP 98
[2017-07-03 13:45] VITALS: BP 83/44; PULSE 112; TEMP 98.7
[2017-07-03 18:16] VITALS: BP 92/51; PULSE 91; TEMP 97
[2017-07-03 21:24] VITALS: BP 98/56; PULSE 103; TEMP 97.3
[2017-07-04 06:01] VITALS: BP 116/72; PULSE 96; TEMP 97.6
[2017-07-04 06:32] LABS: BASO % 0.3 % (0.0-2.0); EOS # 0.1 (0.0-0.7); EOS % 1.6 % (0-4.0); GRAN # 5.2 (1.4-6.5); GRAN % 76.9 % (42.2-75.2); LYMPH % 14.5 % (20.0-51.0); MEAN CELL VOLUME 100 fl (80.0-100.0); MEAN CORPUSCULAR HGB CONC 33 g/dl (33.0-37.0); MEAN PLATELET VOLUME 9.1 fl (7.4-10.4); MONO # 0.4 (0.1-0.6); MONO % 6.4 % (1.7-9.3); PLATELET COUNT 230 K/mm3 (130-400); RED BLOOD COUNT 3.41 M/mm3 (4.10-5.30); REDCELL DISTRIBUTION WIDTH-CV 12.7 % (11.5-14.5)
[2017-07-04 06:33] LABS: HEMATOCRIT 34.1 % (37.0-47.0); HEMOGLOBIN 11.1 g/dl (12.5-16.0); MEAN CORPUSCULAR HEMOGLOBIN 33 pg (27.0-31.0)
[2017-07-04 06:46] LABS: CALCIUM 8.5 mg/dL (8.4-10.2); CREATININE, serum 0.46 mg/dL (0.52-1.25); POTASSIUM 3.2 mmol/L (3.4-5.0)
[2017-07-04 09:31] VITALS: BP 114/74; PULSE 94; TEMP 98.4
[2017-07-04 14:24] VITALS: BP 106/71; PULSE 93; TEMP 97.8
[2017-07-04 17:39] VITALS: BP 95/62; PULSE 101; TEMP 97.2
[2017-07-04 21:30] VITALS: BP 127/77; PULSE 93; TEMP 99.2
[2017-07-05 05:44] VITALS: BP 124/81; PULSE 91; TEMP 97.4
[2017-07-05 06:48] LABS: BASO % 0.6 % (0.0-2.0); EOS # 0.2 (0.0-0.7); EOS % 4.7 % (0-4.0); GRAN # 1.8 (1.4-6.5); GRAN % 38.2 % (42.2-75.2); LYMPH % 42.5 % (20.0-51.0); MEAN CELL VOLUME 98 fl (80.0-100.0); MEAN CORPUSCULAR HGB CONC 33 g/dl (33.0-37.0); MONO # 0.7 (0.1-0.6); MONO % 13.8 % (1.7-9.3); PLATELET COUNT 218 K/mm3 (130-400); RED BLOOD COUNT 3.56 M/mm3 (4.10-5.30); REDCELL DISTRIBUTION WIDTH-CV 12.7 % (11.5-14.5)
[2017-07-05 06:49] LABS: HEMOGLOBIN 11.6 g/dl (12.5-16.0); MEAN CORPUSCULAR HEMOGLOBIN 33 pg (27.0-31.0)
[2017-07-05 06:59] LABS: CALCIUM 8.9 mg/dL (8.4-10.2); CREATININE, serum 0.43 mg/dL (0.52-1.25); MAGNESIUM 1.6 mg/dL (1.6-2.3); PHOSPHOROUS 3.3 mg/dL (2.5-4.5); POTASSIUM 3.6 mmol/L (3.4-5.0)
[2017-07-05] MEDS ORDERED: NICODERM C21 MG/PATC TD (09:15)
[2017-07-05] MEDS ORDERED: MAG-OX 400400 MG/TAB PO (09:17)
[2017-07-05 09:47] VITALS: BP 117/89; PULSE 109; TEMP 97.8
[2017-07-05 15:51] LABS: FOLATE (FOLIC ACID) 14.1 ng/mL (7.0-31.4)
== END 2017-07-05 13:05 | disposition home or self-care (01) | DRG 690 ==
LOC: COL.ER 15:07 → SURG 18:32
PROVIDERS: Emergency Medicine; Internal Medicine; Physician Assistant; Urology
PROC: 0T768DZ Dilation of Right Ureter with Intraluminal Device, Via Natural or Artificial Opening Endoscopic (ICD-10-PCS; principal; 2017-07-02 13:00)
PROC: BT1DZZZ Fluoroscopy of Right Kidney, Ureter and Bladder (ICD-10-PCS; 2017-07-02 13:00)
DX: N13.6 Pyonephrosis (principal); G11.1 Early-onset cerebellar ataxia; E87.1 Hypo-osmolality and hyponatremia; N21.0 Calculus in bladder; F17.210 Nicotine dependence, cigarettes, uncomplicated; F41.9 Anxiety disorder, unspecified; E87.6 Hypokalemia; D64.9 Anemia, unspecified
CPT/HCPCS: 99223-AI; 99231-AI; 99232-AI; 99239; C1769; C2617; J1100; J1170; J1885; J1956; J2270; J2405; J2550; J2704; J3010; J3475; J7030; J7050; J7120; Q9967

== ENCOUNTER 2017-07-14 10:44 | Day surgery (SDC) | payer MEDICARE, MEDICAID ==
[~2017-07-14] VITALS: Ht 152.4 cm; Wt 47.7 kg
[~2017-07-14 10:44] MED LIST changes: +MAG-OX 400400 MG/TAB PO; +NICODERM C21 MG/PATC TD
[2017-07-14 11:36] VITALS: BP 116/80; PULSE 84; TEMP 98.4
[2017-07-14 12:06] LABS: BASO # 0.1 (0.0-0.2); BASO % 0.6 % (0.0-2.0); EOS # 0.4 (0.0-0.7); EOS % 4.2 % (0-4.0); GRAN # 5.4 (1.4-6.5); HEMATOCRIT 39.6 % (37.0-47.0); LYMPH # 1.9 (1.2-3.4); LYMPH % 23.3 % (20.0-51.0); MEAN CELL VOLUME 99 fl (80.0-100.0); MEAN CORPUSCULAR HEMOGLOBIN 33 pg (27.0-31.0); MEAN CORPUSCULAR HGB CONC 33 g/dl (33.0-37.0); MEAN PLATELET VOLUME 8.5 fl (7.4-10.4); MONO # 0.5 (0.1-0.6); MONO % 6.4 % (1.7-9.3); PLATELET COUNT 345 K/mm3 (130-400); REDCELL DISTRIBUTION WIDTH-CV 12.2 % (11.5-14.5)
[2017-07-14 14:40] VITALS: BP 106/75; PULSE 83; TEMP 98.4
[2017-07-14 14:55] VITALS: BP 112/77; PULSE 90
[2017-07-14 15:05] VITALS: BP 107/81; PULSE 90; TEMP 98.4
== END 2017-07-14 15:14 | disposition home or self-care (01) ==
LOC: SDCO 10:44
PROVIDERS: Urology
DX: Z96.0 Presence of urogenital implants (principal); F17.210 Nicotine dependence, cigarettes, uncomplicated; I50.9 Heart failure, unspecified; F41.9 Anxiety disorder, unspecified; F32.9 Major depressive disorder, single episode, unspecified; E03.9 Hypothyroidism, unspecified; Z96.698 Presence of other orthopedic joint implants; Z90.710 Acquired absence of both cervix and uterus; Z90.49 Acquired absence of other specified parts of digestive tract; Z86.73 Personal history of transient ischemic attack (TIA), and cerebral infarction without residual deficits; Z83.3 Family history of diabetes mellitus; Z82.49 Family history of ischemic heart disease and other diseases of the circulatory system
CPT/HCPCS: J0690; J1170; J2550; J2704; J7120

== ENCOUNTER → 2017-11-11 | Outpatient (CLI) | payer MEDICARE, MEDICAID | LOC: COL.RAD 11:16 | DX: M43.8X2 Other specified deforming dorsopathies, cervical region (principal) ==

== ENCOUNTER 2017-11-17 09:40 | Emergency (ER) | payer MEDICARE, MEDICAID ==
[2017-11-17 09:44] VITALS: BP 103/61; TEMP 99
[2017-11-17 11:25] VITALS: PULSE 73
[2017-11-17] MEDS ORDERED: MEDROL 4MG DOSPA4 MG PO (11:26)
== END 2017-11-17 11:30 | disposition home or self-care (01) ==
LOC: COL.ER 09:40
DX: M79.602 Pain in left arm (principal); M47.22 Other spondylosis with radiculopathy, cervical region; F17.210 Nicotine dependence, cigarettes, uncomplicated; Z87.442 Personal history of urinary calculi; Z90.89 Acquired absence of other organs; Z98.890 Other specified postprocedural states; Z88.6 Allergy status to analgesic agent; Z88.0 Allergy status to penicillin
CPT/HCPCS: J1170; J2550

== ENCOUNTER 2018-02-02 13:02 | Outpatient (RCR) | payer MEDICARE, MEDICAID ==
[~2018-02-02 13:02] MED LIST changes: +MEDROL 4MG DOSPA4 MG PO
[2018-02-15] MEDS ORDERED: MEDROL 4MG DOSPA4 MG PO (13:32)
== END 2018-03-31 13:35 | disposition home or self-care (01) ==
LOC: MKS.ESL.OT 13:02
DX: G11.1 Early-onset cerebellar ataxia (principal); Z99.3 Dependence on wheelchair
CPT/HCPCS: G8978-GO; G8979-GO; G8980-GO

== ENCOUNTER 2018-02-15 11:33 | Emergency (ER) | payer MEDICARE, MEDICAID ==
[~2018-02-15] VITALS: Ht 152.4 cm; Wt 45.5 kg
[2018-02-15 11:35] VITALS: TEMP 99.1
[2018-02-15] MEDS ORDERED: MEDROL 4MG DOSPA4 MG PO (13:32)
[2018-02-15 13:44] VITALS: BP 116/81; PULSE 85
== END 2018-02-15 13:46 | disposition home or self-care (01) ==
LOC: COL.ER 11:33
DX: M54.12 Radiculopathy, cervical region (principal); M79.602 Pain in left arm; Z87.891 Personal history of nicotine dependence

== ENCOUNTER → 2018-04-06 | Outpatient (CLI) | payer MEDICARE, MEDICAID | LOC: COL.RAD 08:57 | DX: R13.10 Dysphagia, unspecified (principal); M54.12 Radiculopathy, cervical region | CPT/HCPCS: G8996-GN; G8997-GN ==

== ENCOUNTER 2018-05-12 11:30 | Outpatient (RCR) | payer MEDICARE, MEDICAID | END 2018-06-29 | disposition home or self-care (01) | LOC: MKS.ESL.PT | DX: M54.12 Radiculopathy, cervical region (principal); R13.10 Dysphagia, unspecified; Z79.891 Long term (current) use of opiate analgesic; Z79.899 Other long term (current) drug therapy; F17.290 Nicotine dependence, other tobacco product, uncomplicated | CPT/HCPCS: G0283-GP; G8987-GP; G8988-GP ==

== ENCOUNTER → 2018-05-17 | Outpatient (CLI) | payer MEDICARE, MEDICAID | LOC: MHCPAIN 09:07 | DX: G89.29 Other chronic pain (principal); M54.12 Radiculopathy, cervical region; M47.812 Spondylosis without myelopathy or radiculopathy, cervical region; R51 Headache | CPT/HCPCS: G0463 ==

== ENCOUNTER → 2018-05-26 | Outpatient (CLI) | payer MEDICARE, MEDICAID | LOC: MHCPAIN 13:09 | DX: M54.12 Radiculopathy, cervical region (principal); M50.90 Cervical disc disorder, unspecified, unspecified cervical region | CPT/HCPCS: J1100; Q9967 ==

== ENCOUNTER → 2018-06-08 | Outpatient (CLI) | payer MEDICARE, MEDICAID | LOC: MHCPAIN 10:11 | DX: G89.29 Other chronic pain (principal); M50.90 Cervical disc disorder, unspecified, unspecified cervical region; M54.12 Radiculopathy, cervical region; M54.81 Occipital neuralgia; R51 Headache | CPT/HCPCS: G0463 ==

== ENCOUNTER → 2018-06-16 | Outpatient (CLI) | payer MEDICARE, MEDICAID | LOC: MHCPAIN 10:12 | DX: M50.90 Cervical disc disorder, unspecified, unspecified cervical region (principal); M54.12 Radiculopathy, cervical region | CPT/HCPCS: J1100; Q9967 ==

== ENCOUNTER → 2018-11-01 | Outpatient (CLI) | payer MEDICARE, MEDICAID ==
[2018-11-01 10:55] LABS: BASO % 0.5 % (0.0-2.0); EOS # 0.3 (0.0-0.7); EOS % 3.2 % (0-4.0); GRAN # 4.6 (1.4-6.5); GRAN % 57.8 % (42.2-75.2); HEMATOCRIT 40.7 % (37.0-47.0); HEMOGLOBIN 13.3 g/dl (12.5-16.0); LYMPH # 2.5 (1.2-3.4); MEAN CELL VOLUME 98 fl (80.0-100.0); MEAN CORPUSCULAR HEMOGLOBIN 32 pg (27.0-31.0); MEAN CORPUSCULAR HGB CONC 33 g/dl (33.0-37.0); MEAN PLATELET VOLUME 8.7 fl (7.4-10.4); MONO # 0.5 (0.1-0.6); MONO % 6.2 % (1.7-9.3); PLATELET COUNT 260 K/mm3 (130-400); RED BLOOD COUNT 4.15 M/mm3 (4.10-5.30); REDCELL DISTRIBUTION WIDTH-CV 12.4 % (11.5-14.5)
[2018-11-01 11:01] LABS: CALCIUM 9.9 mg/dL (8.4-10.2); CREATININE, serum 0.45 (0.52-1.25); POTASSIUM 3.9 mmol/L (3.4-5.0)
== END ==
LOC: COL.LAB 10:24
DX: Z01.812 Encounter for preprocedural laboratory examination (principal); N64.81 Ptosis of breast

== ENCOUNTER 2018-11-09 13:50 | Emergency (ER) | payer MEDICARE, MEDICAID ==
[2018-11-09 13:53] VITALS: TEMP 98.3
[2018-11-09] MEDS ORDERED: WELLBUTRIN SR100 M1 PO (14:15)
[2018-11-09] MEDS ORDERED: FLEXERIL 1010 MG/TAB PO (14:16)
[2018-11-09] MEDS ORDERED: PERCOCET 325 MG1 TAB PO (14:17)
[2018-11-09] MEDS ORDERED: DESYREL 100MG100 MG PO (14:19)
[2018-11-09] MEDS ORDERED: BACTROBAN 22GM22 GM TP (14:34)
[2018-11-09 15:01] VITALS: BP 118/90; PULSE 81
== END 2018-11-09 15:01 | disposition home or self-care (01) ==
LOC: COL.ER 13:50
DX: L89.221 Pressure ulcer of left hip, stage 1 (principal); G82.20 Paraplegia, unspecified; F17.210 Nicotine dependence, cigarettes, uncomplicated

== ENCOUNTER → 2018-12-13 | Outpatient (CLI) | payer MEDICARE, MEDICAID ==
[~2018-12-13] MED LIST changes: +BACTROBAN 22GM22 GM TP; +DESYREL 100MG100 MG PO; +WELLBUTRIN SR100 M1 PO
== END ==
LOC: COL.LAB 11:19
DX: N64.81 Ptosis of breast (principal)

== ENCOUNTER → 2018-12-16 | Outpatient (CLI) | payer MEDICARE, MEDICAID | LOC: COL.RAD 09:30 | DX: M25.511 Pain in right shoulder (principal); M25.512 Pain in left shoulder | CPT/HCPCS: J3301; Q9967 ==

== ENCOUNTER → 2018-12-28 | Outpatient (CLI) | payer MEDICARE, MEDICAID ==
[2018-12-28 17:00] LABS: BASO % 0.3 % (0.0-2.0); EOS # 0.2 (0.0-0.7); EOS % 2.2 % (0-4.0); GRAN # 4.2 (1.4-6.5); GRAN % 54.6 % (42.2-75.2); HEMATOCRIT 40.7 % (37.0-47.0); HEMOGLOBIN 13.3 g/dl (12.5-16.0); LYMPH # 2.7 (1.2-3.4); LYMPH % 34.5 % (20.0-51.0); MEAN CELL VOLUME 98 fl (80.0-100.0); MEAN CORPUSCULAR HEMOGLOBIN 32 pg (27.0-31.0); MEAN CORPUSCULAR HGB CONC 33 g/dl (33.0-37.0); MEAN PLATELET VOLUME 8.4 fl (7.4-10.4); MONO # 0.6 (0.1-0.6); MONO % 7.9 % (1.7-9.3); PLATELET COUNT 275 K/mm3 (130-400); RED BLOOD COUNT 4.14 M/mm3 (4.10-5.30); REDCELL DISTRIBUTION WIDTH-CV 12.4 % (11.5-14.5)
[2018-12-28 17:04] LABS: CALCIUM 9.9 mg/dL (8.4-10.2); CREATININE, serum 0.42 (0.52-1.25); POTASSIUM 3.7 mmol/L (3.4-5.0)
== END ==
LOC: COL.LAB 15:43
DX: Z01.818 Encounter for other preprocedural examination (principal); N64.81 Ptosis of breast

== ENCOUNTER 2019-01-03 17:58 | Observation (INO) | payer MEDICARE, MEDICAID ==
[~2019-01-03] VITALS: Ht 152.4 cm; Wt 49.5 kg
[2019-01-03 19:01] LABS: BASO % 0.1 % (0.0-2.0); GRAN # 9.1 (1.4-6.5); GRAN % 84.6 % (42.2-75.2); HEMOGLOBIN 11.7 g/dl (12.5-16.0); LYMPH # 0.8 (1.2-3.4); LYMPH % 7.8 % (20.0-51.0); MEAN CELL VOLUME 99 fl (80.0-100.0); MEAN CORPUSCULAR HEMOGLOBIN 32 pg (27.0-31.0); MEAN CORPUSCULAR HGB CONC 32 g/dl (33.0-37.0); MEAN PLATELET VOLUME 8.6 fl (7.4-10.4); MONO # 0.8 (0.1-0.6); PLATELET COUNT 191 K/mm3 (130-400); RED BLOOD COUNT 3.67 M/mm3 (4.10-5.30)
[2019-01-03 19:12] LABS: HEMATOCRIT 36.2 % (37.0-47.0)
[2019-01-03 19:14] LABS: BILIRUBIN,TOTAL 0.4 mg/dL (0.0-1.0); CALCIUM 9.5 mg/dL (8.4-10.2); CREATININE, serum 0.37 (0.52-1.25); TOTAL PROTEIN 6.9 gm/dL (6.4-8.2)
[2019-01-03] MEDS ORDERED: LASIX 20MG TABL20 MG PO (19:46)
[2019-01-03 21:00] VITALS: BP 127/87; PULSE 89
[2019-01-04] VITALS (7 sets, daily range): BP systolic 93–122; BP diastolic 64–89; PULSE 81–107; TEMP 98–98.8
--- NOTE | 2019-01-04 08:00 | NUR ---
PATIENT IS RESTING IN BED THIS MORNING. PATIENT IS A&OX4. VSS. ABDOMEN IS DISTENDED BUT SOFT TO PALPATION. BOWEL SOUNDS ACTIVE ALL FOUR QUADRANTS. PATIENT REPORTS THAT SHE HAS NOT HAD A BOWEL MOVEMENT IN ABOUT 3 WEEKS. MARIYA CASTILLO NOTIFIED. GENERALIZED WEAKNESS AND BILATERAL LOWER EXTREMITY PARALYSIS NOTED. PATIENT STATES THAT SHE HAS SHORTNESS OF BREATH WITH HER ABDOMEN BEING DISTENDED. SMALL ROUND UNSTAGED PRESSURE ULCER ON LATERAL LEFT HIP NOTED. CREAM AND MEPLEX APPLIED TO LEFT HIP. BILATERAL BREAST INCISIONS DRESSED WITH GAUZE & COMPRESSION BRA IN PLACE WITH OLD BLOODY DRAINAGE PRESENT ON DRESSING. COMPRESSION BRA AND OLD BLOODY GAUZE REMOVED AND REPLACED WITH FLUFFED 4X4 GAUZE AND NEW COMPRESSION BRA. LEFT AC TO INT. PATIENT REPOSITIONED IN BED. SCD'S TO BLE. HEATING PACK TO ABDOMEN. CALL LIGHT WITHIN REACH. MOTHER PRESENT AT THE BEDSIDE. NO OTHER NEEDS AT THIS TIME.
[2019-01-04 08:31] LABS: ALBUMIN 3.5 gm/dL (3.5-5.0); TOTAL PROTEIN 6.2 gm/dL (6.4-8.2)
[2019-01-04 08:45] LABS: BILIRUBIN UNCONJUGATED 0.4 mg/dL (0.0-1.1); BILIRUBIN,DIRECT 0.1 mg/dL (0.0-0.4); BILIRUBIN,TOTAL 0.4 mg/dL (0.0-1.0)
--- NOTE | 2019-01-04 10:18 | NUR ---
CASANDRA met with patient to discuss discharge planning. Patient is currently living in [place] and reports she gets caregivers through [facility] and her mother helps her at night. Patient had surgery at [facility] yesterday and reports it was a same day and she went home as she was doing well. Her and her doctor did not talk about what she was supposed to do as she cant lift her arms and her caregivers cannot lift under her arms. Patients PCP is Dr Jacobo Naranjo and she obtains her medications through [facility]. put in an IPR screen which patient is open to. CASANDRA talked with her about going to a LTC facility for a medicaid stay but she is not open to that. CASANDRA will follow up with PT/OT and patient after evals are completed.
--- NOTE | 2019-01-04 14:24 | NUR ---
JIHAN met with patient and her mother. SW discussed options of seeing if they can get a tanvir lift covered by insurance vs going into a jail short term. Patient does not want to go into a jail but is worried about a tanvir lift being too large for her apartment. SW discussed the option of getting a bedside commode so she wouldnt have to go into the bathroom. She is open to the idea. They are currently looking for another caregiver as they only have one now that comes a few hours a day however the mother is there when the caregiver is not and is able to help. Patient would like to use [facility] for [facility]. SW offered Medicare.gov sheet with approved home health options, it was denied. JIHAN called Erica at [facility] and made the referral. Patient and mother would like to use [facility] for the tanvir lift if they are able to get them. Choice form obtained. JIHAN faxed clinical information and prescription to [facility] and talked with a rep. They will see if they can get it approved by medicare. jihan will continue to follow.
--- NOTE | 2019-01-04 19:00 | NUR ---
REPORT GIVEN TO MARIIA ENGLISH.
--- NOTE | 2019-01-04 20:00 | NUR ---
Report received. Assumed care for hourly shift. Assessment complete. VS stable. Denies questions or concerns. Plan of care discussed and requesting HS meds at 2100 as well as pain medications. Will assess pain and administer per dr order. Call light within reach. Bed in low. WIll monitor.
[2019-01-05 04:30] VITALS: BP 108/71; PULSE 86; TEMP 98.3
--- NOTE | 2019-01-05 06:55 | NUR ---
Report given to Tiffanie CHIANG
[2019-01-05 07:39] VITALS: BP 102/82; PULSE 93; TEMP 98.3
--- NOTE | 2019-01-05 09:19 | NUR ---
Initial visit; Patient thanked Sustainable Communities Designer for offering spiritual care though didn't appear interested at this time.
--- NOTE | 2019-01-05 12:30 | NUR ---
REPORT RECEIVED FROM MAR CHIANG. CARE ASSUMED.
--- NOTE | 2019-01-05 13:11 | NUR ---
Patients insurance did not approve the lift. Patient is agreeable to rent the lift for $135 per month. CASANDRA coordinated with Carmen , [facility], and [facility]. Lift will be at the home between 1-2pm and the ambulance will be here to get patient around 2;15pm. Carmen will meet the patient at her home around 2:30pm. Discharge orders faxed to Carmen and all parties notified of the plan. Patient is DC home today with support via her mother, cousin, [facility] caregiver and [facility]en NIELSEN. There are no other needs at this time.
--- NOTE | 2019-01-05 14:04 | NUR ---
DISCHARGE INSTRUCTIONS REVIEWED WITH PATIENT INCLUDING FOLLOW UP INSTRUCTIONS AND PATIENT HEALTH SUMMARY. IV DISCONTINUED. PT'S BELONGINGS GATHERED TOGETHER TO PREPARE FOR AMBULANCE ARRIVAL.
--- NOTE | 2019-01-05 14:30 | NUR ---
AMBULANCE ARRIVED TO TRANSPORT PATIENT HOME. ASSISTED EMS STAFF IN TRANSFERRING PATIENT TO EMS STRETCHER. PT TOLERATED WELL. PT'S BELONGINGS TAKEN DOWN TO AMBULANCE BAY INCLUDING WHEELCHAIR BY STEPHAN CHIANG. BRIEF REPORT GIVEN TO EMS DRIVERS REGARDING PATIENT. FACE SHEET AND AMBULANCE FORMS PROVIDED TO EMS CREW.
--- NOTE | 2019-01-06 16:38 | NUR ---
Patients mother called and said they are struggling at home and would like help finding a long-term bed using medicaid for a few weeks. Family would like referrals sent to [facility] and [facility]. [facility] did not have a bed and [facility] denied paitent. Family would like referral sent to [facility]. Saturnino at [facility] said they may be able to accept wednesday. This was communicated to family and patient who said they have extra services in place this weekend and feel they will be ok until wednesday. Saturnino will follow up wednesday
== END 2019-01-05 14:45 | disposition home or self-care (01) ==
LOC: COL.ER 17:58 → SURG 19:44
PROVIDERS: Emergency Medicine; Nurse Practitioner; ADMIT Internal Medicine
DX: R53.81 Other malaise (principal); F41.9 Anxiety disorder, unspecified; R74.0 Nonspecific elevation of levels of transaminase and lactic acid dehydrogenase [LDH]; G89.29 Other chronic pain; F32.9 Major depressive disorder, single episode, unspecified; Z90.49 Acquired absence of other specified parts of digestive tract; Z87.891 Personal history of nicotine dependence; Z88.1 Allergy status to other antibiotic agents; Z88.8 Allergy status to other drugs, medicaments and biological substances
CPT/HCPCS: G0378

== ENCOUNTER → 2019-03-20 | Outpatient (CLI) | payer MEDICARE, MEDICAID | LOC: COL.RAD 12:24 | DX: M25.511 Pain in right shoulder (principal) | CPT/HCPCS: J3301; Q9967 ==

== ENCOUNTER 2019-07-05 11:19 | Emergency (ER) | payer MEDICARE, MEDICAID ==
[~2019-07-05] VITALS: Ht 152.4 cm; Wt 47.7 kg
[2019-07-05 11:29] VITALS: TEMP 98.2
[2019-07-05 12:49] LABS: BASO % 0.4 % (0.0-2.0); EOS # 0.2 (0.0-0.7); EOS % 1.9 % (0-4.0); GRAN % 72.3 % (42.2-75.2); HEMATOCRIT 46.3 % (37.0-47.0); LYMPH % 18.5 % (20.0-51.0); MEAN CELL VOLUME 99 fl (80.0-100.0); MEAN CORPUSCULAR HEMOGLOBIN 32 pg (27.0-31.0); MEAN CORPUSCULAR HGB CONC 32 g/dl (33.0-37.0); MEAN PLATELET VOLUME 9.4 fl (7.4-10.4); MONO # 0.7 (0.1-0.6); MONO % 6.7 % (1.7-9.3); PLATELET COUNT 280 K/mm3 (130-400); RED BLOOD COUNT 4.68 M/mm3 (4.10-5.30); REDCELL DISTRIBUTION WIDTH-CV 12.7 % (11.5-14.5)
[2019-07-05 13:14] LABS: ALANINE AMINOTRANSFERASE 39 U/L (9-52); ALBUMIN 4.4 gm/dL (3.5-5.0); ALKALINE PHOSPHATASE 130 U/L (50-136); ANION GAP 8 mmol/L (7-16); AST,SGOT 33 U/L (15-37); BILIRUBIN,TOTAL 0.4 mg/dL (0.0-1.0); BLOOD UREA NITROGEN 12 mg/dL (7-17); CALCIUM 9.6 mg/dL (8.4-10.2); CARBON DIOXIDE 28 mmol/L (22-30); CHLORIDE 105 mmol/L (98-107); CREATININE, serum 0.55 (0.52-1.25); GLUCOSE 119 mg/dL (74-106); LIPASE 51 U/L (23-300); POTASSIUM 3.9 mmol/L (3.4-5.0); SODIUM 141 mmol/L (137-145); TOTAL PROTEIN 7.5 gm/dL (6.4-8.2)
[2019-07-05 13:27] LABS: C-REACTIVE PROTEIN < 0.5 mg/dL (0.0-0.9)
[2019-07-05 13:35] LABS: COLLECTION METHOD CLEAN CATCH
[2019-07-05] MEDS ORDERED: BACTRIM DS 8001 TAB PO (14:17)
[2019-07-05 14:22] LABS: MUCOUS Present /lpf; SQUAMOUS EPITHELIAL None Seen /hpf; URINE BACTERIA None Seen /hpf; URINE RBC >50 /hpf
[2019-07-05 14:38] LABS: PH 6 (5-8); URINE APPEARANCE Clear; URINE BILIRUBIN Negative (NEGATIVE); URINE BLOOD 3+ (NEGATIVE); URINE COLOR Amber; URINE GLUCOSE Negative (NEGATIVE); URINE KETONE Negative (NEGATIVE); URINE LEUKOCYTE ESTERASE Negative (NEGATIVE); URINE NITRATE Negative (NEGATIVE); URINE PROTEIN(semi-quant) Negative (NEGATIVE); URINE UROBILINOGEN Negative (NEGATIVE)
[2019-07-05] MEDS ORDERED: DULCOLAX STOOL100 MG PO (15:51)
[2019-07-05] MEDS ORDERED: ZOFRAN 4MG T4 MG/TAB PO (15:51)
[2019-07-05 16:35] VITALS: BP 113/64; PULSE 94
== END 2019-07-05 16:35 | disposition home or self-care (01) ==
LOC: COL.ER 11:19
PROVIDERS: Family Medicine
DX: R10.9 Unspecified abdominal pain (principal); R31.9 Hematuria, unspecified; M54.9 Dorsalgia, unspecified
CPT/HCPCS: J0696; J1885; J2270; J2405; Q9967

== ENCOUNTER → 2019-08-03 | Outpatient (CLI) | payer MEDICARE, MEDICAID | LOC: COL.RAD 08-01 13:30 | DX: M25.511 Pain in right shoulder (principal); M25.512 Pain in left shoulder | CPT/HCPCS: J3301; Q9967 ==

== ENCOUNTER 2019-09-07 20:08 | Emergency (ER) | payer MEDICARE, MEDICAID ==
[2019-09-07 20:15] VITALS: TEMP 97.6
[2019-09-07 21:38] LABS: COLLECTION METHOD CLEAN CATCH
[2019-09-07 21:41] LABS: BASO % 0.3 % (0.0-2.0); EOS # 0.3 (0.0-0.7); GRAN % 62.8 % (42.2-75.2); HEMATOCRIT 42.5 % (37.0-47.0); HEMOGLOBIN 13.8 g/dl (12.5-16.0); LYMPH # 2.6 (1.2-3.4); LYMPH % 27.5 % (20.0-51.0); MEAN CELL VOLUME 99 fl (80.0-100.0); MEAN CORPUSCULAR HEMOGLOBIN 32 pg (27.0-31.0); MEAN CORPUSCULAR HGB CONC 33 g/dl (33.0-37.0); MONO # 0.6 (0.1-0.6); MONO % 6.2 % (1.7-9.3); PLATELET COUNT 262 K/mm3 (130-400); RED BLOOD COUNT 4.28 M/mm3 (4.10-5.30); REDCELL DISTRIBUTION WIDTH-CV 12.9 % (11.5-14.5)
[2019-09-07 21:56] LABS: ALANINE AMINOTRANSFERASE 21 U/L (4-34); ALBUMIN 4.2 gm/dL (3.5-5.0); ALKALINE PHOSPHATASE 92 U/L (50-136); ANION GAP 7 mmol/L (7-16); AST,SGOT 24 U/L (15-37); BILIRUBIN,TOTAL 0.4 mg/dL (0.0-1.0); BLOOD UREA NITROGEN 15 mg/dL (7-17); CALCIUM 9.5 mg/dL (8.4-10.2); CARBON DIOXIDE 30 mmol/L (22-30); CHLORIDE 105 mmol/L (98-107); CREATININE, serum 0.52 (0.52-1.25); GLUCOSE 118 mg/dL (74-106); LIPASE 40 U/L (23-300); POTASSIUM 3.2 mmol/L (3.4-5.0); SODIUM 141 mmol/L (137-145); TOTAL PROTEIN 6.9 gm/dL (6.4-8.2)
[2019-09-07 22:04] LABS: C-REACTIVE PROTEIN < 0.5 mg/dL (0.0-0.9); TROPONIN-I < 0.012 ng/mL (0.000-0.035)
[2019-09-07 22:15] LABS: MUCOUS Present /lpf; PH 5 (5-8); SQUAMOUS EPITHELIAL None Seen /hpf; TRICYCLIC ANTIDEPRESS URINE NEGATIVE; URINE APPEARANCE Clear; URINE BACTERIA None Seen /hpf; URINE BILIRUBIN Negative (NEGATIVE); URINE BLOOD Negative (NEGATIVE); URINE COLOR Amber; URINE GLUCOSE Negative (NEGATIVE); URINE KETONE Trace (NEGATIVE); URINE LEUKOCYTE ESTERASE Negative (NEGATIVE); URINE NITRATE Negative (NEGATIVE); URINE PROTEIN(semi-quant) Negative (NEGATIVE)
[2019-09-07 22:40] VITALS: BP 109/78; PULSE 85
== END 2019-09-07 22:42 | disposition home or self-care (01) ==
LOC: COL.ER 20:08
PROVIDERS: Emergency Medicine
DX: K59.00 Constipation, unspecified (principal); R10.12 Left upper quadrant pain; R10.32 Left lower quadrant pain; G89.29 Other chronic pain; F17.210 Nicotine dependence, cigarettes, uncomplicated; Z87.442 Personal history of urinary calculi; Z90.89 Acquired absence of other organs; Z90.710 Acquired absence of both cervix and uterus
CPT/HCPCS: J1885; J2405; J3010; J7030

== ENCOUNTER 2019-10-09 09:00 | Outpatient (RCR) | payer MEDICARE, MEDICAID | END 2019-11-23 | disposition still patient (30) | LOC: MKS.ESL.PT | DX: G11.1 Early-onset cerebellar ataxia (principal); M54.5 Low back pain; G89.29 Other chronic pain | CPT/HCPCS: G0283-GP ==

== ENCOUNTER → 2019-10-18 | Outpatient (CLI) | payer MEDICARE, MEDICAID | LOC: COL.RAD 12:34 | DX: M19.012 Primary osteoarthritis, left shoulder (principal); M19.011 Primary osteoarthritis, right shoulder | CPT/HCPCS: J3301; Q9967 ==

== ENCOUNTER → 2020-07-17 | Outpatient (CLI) | payer MEDICARE, MEDICAID | LOC: MHCPAIN 10:46 | DX: M25.511 Pain in right shoulder (principal); M19.011 Primary osteoarthritis, right shoulder; M47.812 Spondylosis without myelopathy or radiculopathy, cervical region; G89.29 Other chronic pain | CPT/HCPCS: G0463 ==

== ENCOUNTER → 2020-07-25 | Outpatient (CLI) | payer MEDICARE, MEDICAID | LOC: MHCPAIN 10:49 | DX: M25.511 Pain in right shoulder (principal); M19.011 Primary osteoarthritis, right shoulder | CPT/HCPCS: J1040; Q9967 ==

== ENCOUNTER → 2020-09-04 | Outpatient (CLI) | payer MEDICARE, MEDICAID ==
[~2020-09-04] MED LIST changes: +PAXIL40 MG PO; +PREDNISONE20 MG PO; +VENTOLIN0.09 MG IH
== END ==
LOC: MHCPAIN 12:44
DX: M47.812 Spondylosis without myelopathy or radiculopathy, cervical region (principal); M54.2 Cervicalgia; M96.1 Postlaminectomy syndrome, not elsewhere classified; M25.511 Pain in right shoulder
CPT/HCPCS: G0463

== ENCOUNTER 2020-09-05 13:57 | Outpatient (RCR) | payer OTHER, MEDICAID ==
[~2020-09-05 13:57] MED LIST changes: -PAXIL40 MG PO; -PREDNISONE20 MG PO; -VENTOLIN0.09 MG IH
[2020-10-01] MEDS ORDERED: ENABLEX15 MG PO (15:48)
[2020-10-01] MEDS ORDERED: PAXIL40 MG PO (15:50)
[2020-10-01] MEDS ORDERED: DULCOLAX STOOL100 MG PO (15:50)
[2020-10-01] MEDS ORDERED: FENTANYL 75MCG TD (15:51)
== END 2020-12-04 | disposition home or self-care (01) ==
LOC: MKS.ESL.OT
DX: G11.11 Friedreich ataxia (principal)

== ENCOUNTER 2020-10-01 09:21 | Emergency (ER) | payer MEDICARE, MEDICAID ==
[~2020-10-01] VITALS: Ht 152.4 cm; Wt 50.0 kg
[2020-10-01 10:46] LABS: BASO # 0.1 (0.0-0.2); BASO % 0.4 % (0.0-2.0); EOS # 0.3 (0.0-0.7); EOS % 2.3 % (0-4.0); GRAN # 9.5 (1.4-6.5); GRAN % 76.1 % (42.2-75.2); HEMATOCRIT 41.8 % (37.0-47.0); HEMOGLOBIN 13.6 g/dl (12.5-16.0); LYMPH % 15.8 % (20.0-51.0); MEAN CELL VOLUME 97 fl (80.0-100.0); MEAN CORPUSCULAR HEMOGLOBIN 32 pg (27.0-31.0); MEAN CORPUSCULAR HGB CONC 33 g/dl (33.0-37.0); MEAN PLATELET VOLUME 8.9 fl (7.4-10.4); MONO # 0.6 (0.1-0.6); PLATELET COUNT 237 K/mm3 (130-400); RED BLOOD COUNT 4.29 M/mm3 (4.10-5.30); REDCELL DISTRIBUTION WIDTH-CV 12.5 % (11.5-14.5)
[2020-10-01 10:55] LABS: ALBUMIN 3.8 gm/dL (3.5-5.0); BILIRUBIN,TOTAL 0.2 mg/dL (0.0-1.0); CALCIUM 9.3 mg/dL (8.4-10.2); CREATININE, serum 0.34 (0.52-1.25); POTASSIUM 3.4 mmol/L (3.4-5.0); TOTAL PROTEIN 6.7 gm/dL (6.4-8.2)
[2020-10-01 10:58] LABS: COLLECTION METHOD CATHETER
[2020-10-01 11:07] LABS: MUCOUS Present /lpf; PH 5 (5-8); SQUAMOUS EPITHELIAL None Seen /hpf; URINE APPEARANCE Hazy; URINE BACTERIA None Seen /hpf; URINE BILIRUBIN Negative (NEGATIVE); URINE BLOOD Negative (NEGATIVE); URINE COLOR Amber; URINE GLUCOSE Negative (NEGATIVE); URINE KETONE Trace (NEGATIVE); URINE LEUKOCYTE ESTERASE Negative (NEGATIVE); URINE NITRATE Negative (NEGATIVE); URINE PROTEIN(semi-quant) 1+ (NEGATIVE); URINE UROBILINOGEN >=4.0 mg/dL (NEGATIVE)
[2020-10-01] MEDS ORDERED: ENABLEX15 MG PO (15:48)
[2020-10-01] MEDS ORDERED: PAXIL40 MG PO (15:50)
[2020-10-01] MEDS ORDERED: DULCOLAX STOOL100 MG PO (15:50)
[2020-10-01] MEDS ORDERED: FENTANYL 75MCG TD (15:51)
[2020-10-01 16:06] VITALS: BP 115/94; PULSE 95; TEMP 97.4
== END 2020-10-01 16:06 | disposition short-term general hospital (02) ==
LOC: COL.ER 09:21
PROVIDERS: Nurse Practitioner
DX: G11.11 Friedreich ataxia (principal); F17.210 Nicotine dependence, cigarettes, uncomplicated; Z88.1 Allergy status to other antibiotic agents
CPT/HCPCS: J2270; J3010

== ENCOUNTER 2020-12-08 11:35 | Emergency (ER) | payer MEDICARE, MEDICAID ==
[~2020-12-08] VITALS: Ht 152.4 cm; Wt 49.1 kg
[~2020-12-08 11:35] MED LIST changes: +PAXIL40 MG PO
[2020-12-08 11:48] VITALS: TEMP 98.2
[2020-12-08] MEDS ORDERED: PREDNISONE20 MG PO (12:43)
[2020-12-08] MEDS ORDERED: VENTOLIN0.09 MG IH (12:58)
[2020-12-08 12:59] VITALS: BP 117/85; PULSE 90
== END 2020-12-08 13:00 | disposition home or self-care (01) ==
LOC: COL.ER 11:35
DX: J45.901 Unspecified asthma with (acute) exacerbation (principal); F17.210 Nicotine dependence, cigarettes, uncomplicated; Z88.6 Allergy status to analgesic agent
CPT/HCPCS: J7512

== ENCOUNTER 2021-06-23 14:33 | Emergency (ER) | payer MEDICARE, MEDICAID ==
[~2021-06-23] VITALS: Ht 152.4 cm; Wt 54.5 kg
[~2021-06-23 14:33] MED LIST changes: +PREDNISONE20 MG PO; +VENTOLIN0.09 MG IH
[2021-06-23 15:23] VITALS: TEMP 98
[2021-06-23 19:53] LABS: BASO # 0.1 K/mm3 (0.0-0.2); BASO % 0.8 % (0.0-2.0); EOS # 0.4 K/mm3 (0.0-0.7); EOS % 4.5 % (0.0-4.0); GRAN % 51.5 % (42.2-75.2); HEMATOCRIT 39.2 % (37.0-47.0); LYMPH # 2.7 K/mm3 (1.2-3.4); LYMPH % 34.8 % (20.0-51.0); MEAN CELL VOLUME 92 fl (80.0-100.0); MEAN CORPUSCULAR HEMOGLOBIN 30 pg (27-31); MEAN CORPUSCULAR HGB CONC 33 g/dl (33.0-37.0); MONO # 0.6 K/mm3 (0.1-0.6); MONO % 8.1 % (1.7-9.3); PLATELET COUNT 236 K/mm3 (130-400); RED BLOOD COUNT 4.28 M/mm3 (4.10-5.30)
[2021-06-23 20:07] LABS: ALBUMIN 3.9 gm/dL (3.5-5.0); BILIRUBIN,TOTAL 0.9 mg/dL (0.2-1.2); CALCIUM 9.3 mg/dL (8.4-10.2); CREATININE, serum 0.6 mg/dL (0.57-1.11); POTASSIUM 3.8 mmol/L (3.5-4.5); TOTAL PROTEIN 6.5 gm/dL (6.2-8.1)
[2021-06-23] MEDS ORDERED: ZITHROMAX Z PA250 MG PO (21:10)
[2021-06-23 21:34] VITALS: BP 128/61; PULSE 80
== END 2021-06-23 21:45 | disposition home or self-care (01) ==
LOC: COL.ER 14:33
PROVIDERS: Personal Emergency Response Attendant
DX: J20.9 Acute bronchitis, unspecified (principal); J45.909 Unspecified asthma, uncomplicated; G35 Multiple sclerosis; G11.11 Friedreich ataxia; Z79.899 Other long term (current) drug therapy; Z79.52 Long term (current) use of systemic steroids; Z20.822 Contact with and (suspected) exposure to COVID-19
CPT/HCPCS: J0696; J7030

== ENCOUNTER 2021-07-03 10:36 | Emergency (ER) | payer MEDICARE, MEDICAID ==
[~2021-07-03] VITALS: Ht 152.4 cm; Wt 45.5 kg
[~2021-07-03 10:36] MED LIST changes: +ZITHROMAX Z PA250 MG PO
[2021-07-03 10:46] VITALS: TEMP 98.1
[2021-07-03 11:30] VITALS: BP 119/81; PULSE 90
== END 2021-07-03 11:30 | disposition home or self-care (01) ==
LOC: COL.ER 10:36
DX: S82.142A Displaced bicondylar fracture of left tibia, initial encounter for closed fracture (principal); G11.11 Friedreich ataxia; W05.0XXA Fall from non-moving wheelchair, initial encounter
CPT/HCPCS: L1846

== ENCOUNTER 2021-11-13 07:35 | Inpatient (IN) | payer MEDICARE, MEDICAID ==
[~2021-11-13] VITALS: Ht 152.4 cm; Wt 48.8 kg
[~2021-11-13 07:35] MED LIST changes: +XANAX2 MG PO
[2021-11-13 07:59] LABS: BASO % 0.3 % (0.0-2.0); EOS % 0.3 % (0.0-4.0); GRAN # 6.3 K/mm3 (1.4-6.5); GRAN % 84.6 % (42.2-75.2); HEMOGLOBIN 11.6 g/dl (12.5-16.0); LYMPH # 0.7 K/mm3 (1.2-3.4); LYMPH % 9.1 % (20.0-51.0); MEAN CELL VOLUME 92 fl (80.0-100.0); MEAN CORPUSCULAR HEMOGLOBIN 29 pg (27-31); MEAN CORPUSCULAR HGB CONC 32 g/dl (33.0-37.0); MEAN PLATELET VOLUME 9.6 fl (7.4-10.4); MONO # 0.4 K/mm3 (0.1-0.6); MONO % 5.4 % (1.7-9.3); PLATELET COUNT 223 K/mm3 (130-400); REDCELL DISTRIBUTION WIDTH-CV 13.8 % (11.5-14.5)
[2021-11-13 08:01] LABS: HEMATOCRIT 36.7 % (37.0-47.0)
[2021-11-13] MEDS ORDERED: ENABLEX15 MG PO (08:58)
[2021-11-13] MEDS ORDERED: DESYREL 100MG100 MG PO (08:58)
[2021-11-13] MEDS ORDERED: CYMBALTA 30MG30 MG PO (08:58)
[2021-11-13 09:45] LABS: BILIRUBIN,TOTAL 0.7 mg/dL (0.2-1.2); CALCIUM 9.1 mg/dL (8.4-10.2); CREATININE, serum 0.51 mg/dL (0.57-1.11); POTASSIUM 3.9 mmol/L (3.5-4.5); TOTAL PROTEIN 6.6 gm/dL (6.2-8.1)
[2021-11-13 09:53] LABS: TROPONIN-I 0.078 ng/mL (0.00-0.033)
[2021-11-13] MEDS ORDERED: PERCOCET 325 MG1 TAB PO (11:05)
--- NOTE | 2021-11-13 12:40 | NUR ---
PATIENT ARRIVED TO MEDICAL UNIT FROM ED AT THIS TIME. SON AND CAREGIVER PRESENT. SON STATES THAT HE IS HER DPOA BUT HAS NO PAPERWORK TO VERIFY THIS. SHE ALSO HAS ANOTHER SON WHO LIVES IN [place] THAT IS SAID TO BE DPOA. EXPLAINED TO FAMILY THAT PAPER WORK MUST BE ON FILE TO MAKE ANY DECISIONS REGARDING PATIENT AND THAT PATIENT IS ALSO MENTALLY COMPETENT AT THIS TIME TO MAKE HER OWN DECISIONS. CAREGIVER STATES SHE PLACED NEW FENTANYL PATCH TO PATIENT LEFT SHOULDER IN THE ED, PLACEMENT VERIFIED AND PATCH DATED BY THIS NURSE. MED REC DONE WITH PATIENT AND CAREGIVER. PATIENT IN STABLE CONDITION AT THIS TIME. REQUIRES ASSIST X2 WITH TOILETING AND ADLS. REQUIRES ASSIST X1 FOR MEALS. CAREGIVER ASSISTING PATIENT AT THIS TIME. INFORMED OF VISITING HOURS. PATIENT TAKES MEDS WHOLE WITHOUT ISSUE. ADMITTED WITH IV TO LEFT FOREARM, INT. TELE MONITOR PLACED PER ORDER.
[2021-11-13 13:26] VITALS: BP 117/81; PULSE 93; TEMP 98.2
[2021-11-13] MEDS ORDERED: CYMBALTA 60MG60 MG PO (13:36)
[2021-11-13 15:47] VITALS: BP 124/84; PULSE 98; TEMP 98.4
[2021-11-13 15:56] LABS: ARTERIAL BLD GAS O2 SATURATION 96.1 % (92-100); ARTERIAL BLD GAS TCO2 CT 25.4; ARTERIAL BLOOD GAS HCO3 24.2 meq/L (22-26); ARTERIAL BLOOD GAS PCO2 37.9 mmHg (35-45); ARTERIAL BLOOD GAS PO2 81.7 mmHg (80-100); ARTERIAL BLOOD GAS pH 7.42 (7.35-7.45)
[2021-11-13 20:00] VITALS: BP 108/78; PULSE 99; TEMP 98.4
--- NOTE | 2021-11-13 23:36 | NUR ---
Unable to document an adult shift assessment. [employer] only pulls up a pediatric shift assessment and will not allow for an adult shift assessment to be added. Will make shift assessment documentation in note form instead.
--- NOTE | 2021-11-13 23:37 | NUR ---
Pt is alert this evening and oriented, but is emotionally labile and drowsy. Pt is difficult to work with this evening. Reported to her family and to myself that she had not recieved pain medication today, but it was documented that she had recieved pain medication today. Pt appears forgetful. Pt called out multiple times within an hour asking for ordered xanax and pain medication. Educated and re-educated pt that the medications were ordered for every 6 hours and every 4 hours and that she was unable to have those medications at those times, because they had not reached the 4 or 6 hour hebert yet. Pt could not seem to comprehend this, and continued to persist that she wanted the medications. Pt requested to be turned on to her right side. The nursing assistants teacher and I turned her on her right side multiple different times with a pillow and she continued to persist I was doing it wrong and was not listening to her. Once the pt was relaxed she was able to fall asleep. Shift assessment performed. Medications administered per orders. Prn xanax administered according to orders. VS WNL. No skin issues noted. IV noted in the left hand, saline locked. Lung sounds clear in all rodriguez. Abdomen is distended and tight. Active bowel sounds in all quadrants. No signs of edema. No signs of DVT in BLE. RR normal. HR NSR. S1S2 heart sounds. bus driver/monitor on. Pt's son requested to stay overnight. marking room supervisor was notified and stated that 1 person would be allowed to stay. Pt's son spoke to me and asked if him and his spouse could stay and I reported to him that just 1 person could stay. Son told me the grandmother would be staying overnight instead. There is currently no one at the pt's bedside. Pt is difficult to understand, speech is slurred. Pupils equal and brisk. Radial and pedal pulses 2+ bilaterally. Pt reports no questions, will continue to monitor.
[2021-11-14 00:35] VITALS: BP 98/72; PULSE 78; TEMP 97.8
[2021-11-14 04:00] VITALS: BP 98/70; PULSE 82; TEMP 97.7
--- NOTE | 2021-11-14 05:09 | NUR ---
No adverse events overnight. Pt remains very drowsy, sleeping currently, but is easily awoken by speech. Pt remains difficult to comprehend. Follows commands. Prn percocet administered x2 for pain. Prn xanax administered x1. Pt able to tolerate PO. Repositioned pt frequently overnight. VS stable, BP ran softer overnight. Pt reports no questions at this time, resting comfortable. Will continue to monitor.
[2021-11-14 06:18] LABS: BASO % 0.4 % (0.0-2.0); EOS # 0.4 K/mm3 (0.0-0.7); EOS % 6.6 % (0.0-4.0); GRAN # 3.7 K/mm3 (1.4-6.5); GRAN % 54.7 % (42.2-75.2); HEMOGLOBIN 10.3 g/dl (12.5-16.0); LYMPH % 29.7 % (20.0-51.0); MEAN CELL VOLUME 94 fl (80.0-100.0); MEAN CORPUSCULAR HEMOGLOBIN 29 pg (27-31); MEAN CORPUSCULAR HGB CONC 31 g/dl (33.0-37.0); MEAN PLATELET VOLUME 9.2 fl (7.4-10.4); MONO # 0.6 K/mm3 (0.1-0.6); MONO % 8.5 % (1.7-9.3); PLATELET COUNT 243 K/mm3 (130-400); RED BLOOD COUNT 3.57 M/mm3 (4.10-5.30); REDCELL DISTRIBUTION WIDTH-CV 13.7 % (11.5-14.5)
[2021-11-14 06:27] LABS: HEMATOCRIT 33.4 % (37.0-47.0)
[2021-11-14 06:35] LABS: CALCIUM 8.9 mg/dL (8.4-10.2); CREATININE, serum 0.45 mg/dL (0.57-1.11); POTASSIUM 3.2 mmol/L (3.5-4.5)
[2021-11-14 06:44] LABS: TROPONIN-I 0.062 ng/mL (0.00-0.033)
--- NOTE | 2021-11-14 07:00 | NUR ---
lab notified me of critical troponin value. notified the provider on-call of the value.
[2021-11-14 07:28] VITALS: BP 104/75; PULSE 88; TEMP 98.1
--- NOTE | 2021-11-14 08:00 | NUR ---
Patient fabián in bed, A&Ox4 with intermettent confusion. IV CDI. Denies pain and discomfort. Nursing staffx2 assisted with repositioning the patient in bed. Nursing staff assisted with feeding the patient. Call light within reach. Bed alarm on
[2021-11-14 12:25] VITALS: BP 120/82; PULSE 110; TEMP 98.4
[2021-11-14] MEDS ORDERED: DOXYCYCLINE HY100 MG PO (13:09)
[2021-11-14] MEDS ORDERED: OMNICEF 300MG300 MG PO (13:10)
[2021-11-14] MEDS ORDERED: TESSALON P100 MG/CAP PO (13:11)
[2021-11-14] MEDS ORDERED: PROAIR HFA0.09 MG/AC IH (13:15)
--- NOTE | 2021-11-14 13:57 | NUR ---
The clinical team is ready to discharge the patient today. notified CASANDRA that the patient is interested in getting set up at [facility] for mental health services. CASANDRA contacted the patient's son, Brandyn, to discuss discharge plan. The patient lives in [place] with her mother, Heena Grant (ph#[phone]). Brandyn states that the patient will be moving in with her grandmother soon. The patient has Friedreich's Ataxia. She is wheelchair bound and has a tanvir lift for transfers. Brandyn states that the patient has two private duty caregivers from [address] [place] [address] that assist her with everything. The patient's PCP is Dr. Ashlyn Ang. The patient does not have a DPOA-HC in EMR, but Brandyn states that the patient does have one completed and that it designates him and the patient's brother, Javon. She states that the patient's mother is suppose to be bringing a copy of the DPOA-HC to the hospital. He states that the patient is and has two children: himself and Elban. Brandyn states that Wilfredo will say he is the patient's DPOA-HC, but he is not. He states that [facility]ia Doss may have a copy of the DPOA-HC. Brandyn is in agreement to the plan of the patient discharging back home today. CASANDRA contacted [facility] to inquire if they have a copy of the patient's DPOA-HC. The outpatient receptionist reports that they do not. CASANDRA contacted [facility] to set the patient up for outpatient mental health services. The outpatient receptionist reports that the patient will need to fill out paperwork, before they can get her set up with an appointment. The outpatient receptionist reports that they can either fax/email the paperwork to this to provide to the patient or they can call the patient. CASANDRA met with the patient and asked her preference. The patient would prefer for [facility] to call her. CASANDRA notified the outpatient receptionist. The patient is to discharge back home with her mother today, 11/14, and resume previous services caregiver services from [address] [place] [address]. No additional needs at this time.
--- NOTE | 2021-11-14 14:00 | NUR ---
Discharge paperwork reviewed with the patient and family. Patient and family verbalized an understanding to follow doctors orders. IV removed, tip intact. Family assisted with getting the patient dressed and into the wheelchair. No further needs expressed. Personal belongings with the patient.
--- NOTE | 2021-11-20 11:03 | NUR ---
tree worker contacted [facility] and left message requesting they contact patient to begin services. Worker also called patient and gave her the number to [facility] and encouraged that she/caregiver call Rolette herself. Lynette verbalized understanding and agreed with the above information.
== END 2021-11-14 14:00 | disposition home or self-care (01) | DRG 193 ==
LOC: COL.ER 07:35 → MEDICAL 10:31
PROVIDERS: Physician Assistant; Student in an Organized Health Care Education/Training Program
DX: J15.9 Unspecified bacterial pneumonia (principal); J96.01 Acute respiratory failure with hypoxia; G11.11 Friedreich ataxia; F41.9 Anxiety disorder, unspecified; F17.210 Nicotine dependence, cigarettes, uncomplicated; D64.9 Anemia, unspecified; G89.29 Other chronic pain; F32.A Depression, unspecified; Z66 Do not resuscitate; E87.6 Hypokalemia; Z20.822 Contact with and (suspected) exposure to COVID-19
CPT/HCPCS: 99223-AI; 99239; A9284; J0696

== ENCOUNTER 2022-03-21 15:26 | Emergency (ER) | payer MEDICARE, MEDICAID ==
[~2022-03-21] VITALS: Ht 152.4 cm; Wt 48.2 kg
[~2022-03-21 15:26] MED LIST changes: +CYMBALTA 30MG30 MG PO; +CYMBALTA 60MG60 MG PO; +DOXYCYCLINE HY100 MG PO; +PROAIR HFA0.09 MG/AC IH; +TESSALON P100 MG/CAP PO
[2022-03-21 15:33] VITALS: TEMP 98.4
[2022-03-21 16:51] LABS: BASO % 0.6 % (0.0-2.0); EOS # 0.6 K/mm3 (0.0-0.7); EOS % 8.3 % (0.0-4.0); GRAN # 3.3 K/mm3 (1.4-6.5); HEMATOCRIT 37.5 % (37.0-47.0); HEMOGLOBIN 12.2 g/dl (12.5-16.0); LYMPH # 2.3 K/mm3 (1.2-3.4); LYMPH % 34.4 % (20.0-51.0); MEAN CELL VOLUME 91 fl (80.0-100.0); MEAN CORPUSCULAR HEMOGLOBIN 30 pg (27-31); MEAN CORPUSCULAR HGB CONC 33 g/dl (33.0-37.0); MONO # 0.5 K/mm3 (0.1-0.6); MONO % 7.3 % (1.7-9.3); PLATELET COUNT 280 K/mm3 (130-400); RED BLOOD COUNT 4.11 M/mm3 (4.10-5.30); REDCELL DISTRIBUTION WIDTH-CV 14.9 % (11.5-14.5)
[2022-03-21 17:08] LABS: COLLECTION METHOD CATHETER
[2022-03-21 17:09] LABS: BILIRUBIN,TOTAL 0.3 mg/dL (0.2-1.2); CALCIUM 9.1 mg/dL (8.4-10.2); CREATININE, serum 0.52 mg/dL (0.57-1.11); POTASSIUM 3.8 mmol/L (3.5-4.5); TOTAL PROTEIN 6.1 gm/dL (6.2-8.1)
[2022-03-21 17:23] LABS: MUCOUS Present (NOT PRESENT); SQUAMOUS EPITHELIAL 0-2 /hpf (0-10); URINE BACTERIA None Seen /hpf (NONE SEEN); URINE RBC 0-2 /hpf (0-2)
[2022-03-21 17:24] LABS: PH 5.5 (5.0-8.5); URINE APPEARANCE Clear (CLEAR/HAZY); URINE BLOOD Negative (NEGATIVE); URINE COLOR Yellow (YELLOW); URINE GLUCOSE Negative (NEGATIVE); URINE KETONE Negative (NEGATIVE); URINE NITRATE Negative (NEGATIVE); URINE PROTEIN(semi-quant) Negative (NEGATIVE)
[2022-03-21 21:00] VITALS: BP 138/89; PULSE 89
== END 2022-03-21 21:00 | disposition home or self-care (01) ==
LOC: COL.ER 15:26
PROVIDERS: Nurse Practitioner
DX: R10.32 Left lower quadrant pain (principal); Z87.891 Personal history of nicotine dependence; Z90.49 Acquired absence of other specified parts of digestive tract; Z88.5 Allergy status to narcotic agent
CPT/HCPCS: J2270; J2405; Q9967

== ENCOUNTER 2023-08-23 09:33 | Emergency (ER) | payer MEDICARE, MEDICAID ==
[~2023-08-23] VITALS: Wt 47.7 kg
[~2023-08-23 09:33] MED LIST changes: +ANUSOL-HC2.5% RC; +[UNRECOGNIZED DRUG - OTHER] TP
[2023-08-23 09:49] VITALS: TEMP 98.6
[2023-08-23] MEDS ORDERED: NORCO 325 MG-51 TAB PO (10:55)
[2023-08-23 12:31] VITALS: BP 132/100; PULSE 104
--- NOTE | 2023-08-23 13:32 | NUR ---
supply service worker met with patient, patient's mother, Brandyn [phone] and patient's Beau mcknight caregiver to discuss current needs and desires. Patient states she is willing to go to moth exterminator care now. Tiffanie Hayes, professor of social work provided patient/mother with Medicare.gov share for home health and moth exterminator care facilities. Workers confirmed that [facility] does not have an opening and that [facility] declines to accept patient. Referrals are eboni sent to [facility] and [facility] per patient and mother's approval. Patient will discharge home and will continue to help patient secure placement. Worker left message for patient's primary care provider to call regarding home health. Worker collaborated with ED nursing and physician regarding the above information.
--- NOTE | 2023-08-23 15:07 | NUR ---
shine worker spoke with Iza with Dr Fuentes's office and confirmed that they will send home health orders to [facility] (per patient and mother's choice). Worker contacted Vince with [facility] and confirmed that they can admit patient after they receive their orders.
--- NOTE | 2023-08-23 16:36 | NUR ---
equipment worker was notified patient's caregiver is having difficulty with caring for her in her home and has been looking at placement. CASANDRA met with patient and her mother, Brandyn Grant. Brandyn reports patient had a Care assessment on Wednesday and it was still pending whether they needed a level II or not. Brandyn expressed they were under the impression that [facility] was going to accept but they had to do the care assessment again first. Patient has caregivers through [facility] and was open to having home health established as well. CASANDRA provided the Medicare.gov list for home health agencies in [facility]. CASANDRA contacted the [facility] on aging regarding the care assessment. Patient's care assessment is pending to determine if patient meets criteria for a level II or not. CASANDRA, CASANDRA Student and Ashlyn Workman, CASANDRA director, met with patient, patient's mother and patient's caregiver through [facility]. Patient would like to go to [facility], [facility] or [facility]. CASANDRA secure emailed referral to [facility]. CASANDRA contacted [facility] whom expressed they were unable to accept at this time as they were waiting for the care assessment to determine her level of care. [facility] expressed they were also concerned because patient previously left a nursing facility AMA. CASANDRA was notified by [facility] that they are unable to accept this patient at this time and has been in contact with the mother. Ashlyn Workman spoke with [facility], see note. CASANDRA was notified patient wants [facility]. CASANDRA secure emailed a home health referral to [facility].
--- NOTE | 2023-08-24 12:42 | NUR ---
Patient's mother contacted this social psychologist to inquire about prison referrals. Worker advised [facility] will not screen until they know if patient will need a Level II. Worker advised, again, that [facility] declined. Worker requested that [facility]'s advise on the Level II status.
--- NOTE | 2023-08-24 13:55 | NUR ---
photofinishing laboratory worker was notified [facility] is unable to accept patient for LTC.
--- NOTE | 2023-08-24 15:15 | NUR ---
cabin worker made an APS report regarding concerns, patient needs terminologist care. Intake ID:[id number]
== END 2023-08-23 13:20 | disposition home or self-care (01) ==
LOC: COL.ER 09:33
DX: S80.02XA Contusion of left knee, initial encounter (principal); M81.0 Age-related osteoporosis without current pathological fracture; G11.11 Friedreich ataxia; W04.XXXA Fall while being carried or supported by other persons, initial encounter

== ENCOUNTER 2024-01-30 10:29 | Emergency (ER) | payer MEDICARE, MEDICAID ==
[~2024-01-30] VITALS: Ht 152.4 cm; Wt 43.8 kg
[~2024-01-30 10:29] MED LIST changes: +NORCO 325 MG-51 TAB PO
[2024-01-30 10:30] VITALS: TEMP 98.6
[2024-01-30] MEDS ORDERED: HYDROmorphone 0.5 MG/0.5 ML SYRINGE IV ONE (11:00)
[2024-01-30] MEDS ORDERED: Ondansetron 4 MG/2 ML VIAL IV ONE (11:00)
[2024-01-30] MEDS ORDERED: LR 1,000 ML IV ONE (11:00)
[2024-01-30 11:27] LABS: BASO # 0.1 K/mm3 (0.0-0.2); BASO % 0.4 % (0.0-2.0); EOS # 0.3 K/mm3 (0.0-0.7); EOS % 2.1 % (0.0-4.0); GRAN % 74.9 % (42.2-75.2); HEMATOCRIT 44.8 % (37.0-47.0); HEMOGLOBIN 14.9 g/dl (12.5-16.0); LYMPH # 2.1 K/mm3 (1.2-3.4); LYMPH % 17.4 % (20.0-51.0); MEAN CELL VOLUME 99 fl (80.0-100.0); MEAN CORPUSCULAR HEMOGLOBIN 33 pg (27-31); MEAN CORPUSCULAR HGB CONC 33 g/dl (33.0-37.0); MEAN PLATELET VOLUME 9.1 fl (7.4-10.4); MONO # 0.6 K/mm3 (0.1-0.6); MONO % 4.9 % (1.7-9.3); PLATELET COUNT 281 K/mm3 (130-400); RED BLOOD COUNT 4.53 M/mm3 (4.10-5.30); REDCELL DISTRIBUTION WIDTH-CV 12.3 % (11.5-14.5)
[2024-01-30 11:44] LABS: ALBUMIN 3.8 g/dL (3.5-5.0); C-REACTIVE PROTEIN 0.56 mg/dL (0.00-0.50); CALCIUM 9.6 mg/dL (8.4-10.2); CREATININE, serum 0.54 mg/dL (0.57-1.11); TOTAL PROTEIN 6.9 g/dl (6.2-8.1)
[2024-01-30 11:57] LABS: BILIRUBIN,TOTAL 0.8 mg/dL (0.2-1.2)
--- NOTE | 2024-01-30 14:04 | NUR ---
SW consulted by ED staff due to patient stating she doesn't like her caregiver. SW reviewed chart. Met with patient and her mother at bedside. Patient verified that she lives in [place] with her mother Brandyn Grant ([phone]). Patient lists her son Selvin ([phone]) as alternative contact. Patient states her brother Javon is her DPOA. patient states that she sees Dr. Ashlyn Ang as her PCP. Patient is total care. SW discussed SW/CM visit in July 2023 where patient was referred to multiple nursing homes for LTC and sent home with [facility] referral. Patient has had [facility] in the past but states she was told she had to find a new company as [employer] [facility] stated they couldn't care for patient any more. Mother reports that patient is now cared for by Arabella out of [place] for about 1 week. Mother and patient state that [facility] informed them that they have to find their own [facility] and [facility] SW questioned patient and mother about the Level II assessment that was referenced at July's ER visit. Mom states that patient did receive a Level II assessment for placement. Patient and mother state mom cannot care for patient much longer. SW informed them that LTC placement cannot happen on a Wednesday afternoon from the ED. Patient is cleared by attending physician for discharge and mother is agreeable to take patient home. They were provided with a [facility] Care Givers Resource List, Medicare.gov long term search for [place] and [facility] with a 50 mile search radius. Mother stated that her son lives in [place] and she would like patient close to him for placement. They were instructed by CASANDRA and Forms Examiner to contact Dr. Ang's office tomorrow for assistance in long term referral due to Dr Ang having to write admission orders. Patient adament that "no one will accept me because I'm not 66." SW explained that her physical condition and Level II will qualify her for LTC placement. Forms Examiner assisted in communicating with patient for discharge.
[2024-01-30] MEDS ORDERED: Magnesium Citrate Oral Soln 300 ML BOTTLE PO ONE (14:15)
[2024-01-30] MEDS ORDERED: NS 100 ML IV SCH (14:41)
[2024-01-30] MEDS ORDERED: Iohexol 300 - 100 ML VIAL IV ONE (14:41)
[2024-01-30 15:40] VITALS: BP 128/73; PULSE 96
== END 2024-01-30 15:45 | disposition home or self-care (01) ==
LOC: COL.ER 10:29
PROVIDERS: Family Medicine
DX: G89.29 Other chronic pain (principal); M54.2 Cervicalgia
CPT/HCPCS: J1170; J2405; J7120; Q9967

== ENCOUNTER → 2024-03-07 | Outpatient (CLI) | payer MEDICARE, MEDICAID ==
[~2024-03-07] MED LIST changes: +Iohexol 300 - 100 ML VIAL IV ONE; +NS 100 ML IV SCH
== END ==
LOC: COL.RAD 14:11
DX: K83.8 Other specified diseases of biliary tract (principal); K59.09 Other constipation; K59.03 Drug induced constipation; T40.2X5A Adverse effect of other opioids, initial encounter; G11.11 Friedreich ataxia; R14.0 Abdominal distension (gaseous); Z90.49 Acquired absence of other specified parts of digestive tract
CPT/HCPCS: Q9967

== ENCOUNTER 2024-03-19 12:25 | Emergency (ER) | payer MEDICARE, MEDICAID ==
[~2024-03-19] VITALS: Ht 152.4 cm; Wt 43.2 kg
[~2024-03-19 12:25] MED LIST changes: -Iohexol 300 - 100 ML VIAL IV ONE; -NS 100 ML IV SCH
[2024-03-19 12:29] VITALS: TEMP 99.7
[2024-03-19 14:31] LABS: BASO % 0.5 % (0.0-2.0); EOS # 0.2 K/mm3 (0.0-0.7); EOS % 2.3 % (0.0-4.0); GRAN # 5.7 K/mm3 (1.4-6.5); GRAN % 66.5 % (42.2-75.2); HEMATOCRIT 47.9 % (37.0-47.0); LYMPH # 2.2 K/mm3 (1.2-3.4); LYMPH % 25.1 % (20.0-51.0); MEAN CELL VOLUME 94 fl (80.0-100.0); MEAN CORPUSCULAR HEMOGLOBIN 33 pg (27-31); MEAN CORPUSCULAR HGB CONC 36 g/dl (33.0-37.0); MEAN PLATELET VOLUME 8.8 fl (7.4-10.4); MONO # 0.5 K/mm3 (0.1-0.6); MONO % 5.4 % (1.7-9.3); PLATELET COUNT 291 K/mm3 (130-400); RED BLOOD COUNT 5.09 M/mm3 (4.10-5.30); REDCELL DISTRIBUTION WIDTH-CV 11.7 % (11.5-14.5)
[2024-03-19 14:50] LABS: ALBUMIN 4.2 g/dL (3.5-5.0); BILIRUBIN,TOTAL 0.6 mg/dL (0.2-1.2); CREATININE, serum 0.57 mg/dL (0.57-1.11); POTASSIUM 3.7 mEq/L (3.5-4.5); TOTAL PROTEIN 7.4 g/dl (6.2-8.1)
[2024-03-19] MEDS ORDERED: oxyCODONE 5 MG TAB PO PRN (15:15)
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
[2024-03-19 21:00] VITALS: BP 116/84; PULSE 98
--- NOTE | 2024-03-21 16:04 | NUR ---
house worker general confirmed with DEAN Patricio'tessa, that patient was found by the Level II Care debubblizer to not need Level II facility placement. Abhay is going to have DEAN Du's call this worker to discuss the complexities of patient's care needs and inability for mother to provide care and that fpc's cannot manage patient's care. Worker also left message with Jamia Gayle. Worker attempted to call patient's mother and the answering machine is full.
== END 2024-03-19 21:00 | disposition home or self-care (01) ==
LOC: COL.ER 12:25
PROVIDERS: Personal Emergency Response Attendant
DX: G11.11 Friedreich ataxia (principal)